=== PATIENT | female | born 1955 | race Caucasian/White ===

== ENCOUNTER 2020-02-04 13:06 | Inpatient (IN) | payer MEDICARE, MEDICAID, SELFPAY ==
[2020-02-04 13:07] VITALS: BP 140/117; PULSE 89; RESP 18; TEMP 36.6; O2SAT 95; BMI 29.9
--- NOTE | 2020-02-04 13:18 | ECG_ITS ---
[facility] Test Date: 2020-02-04 Pat Name: Cassie Shi Department: Room: Gender: Female Security Intern: : 1955 Requested By: Deena Alston Order Number: [id number] Darryl MD: Polly Cho M.D. Measurements Intervals Pinole Rate: 84 P: 23 VT: 175 QRS: -12 QRSD: 98 T: 61 QT: 403 QTc: 478 Interpretive Statements SINUS RHYTHM NONSPECIFIC T-WAVE ABNORMALITY No previous ECG available for comparison Electronically Signed On 02-05-2020 17:20:50 CDT by Polly Cho M.D. [id number]
--- NOTE | 2020-02-04 13:23 | W.ED.PSYCH ---
HPI - Psych General: Chief Complaint: Psychiatric Symptoms Stated Complaint: POSSIBLE REACTION TO SEROQUEL/ AGITATED Time Seen by Provider: 02/04/20 13:07 History of Present Illness: HPI Narrative: This patient is a 64-year-old female presenting with altered mental status. She came in by EMS and is accompanied by her daughter. The daughter tells me that the patient did not sleep well last night and apparently that is not unusual for her. She said was fine this morning and then laid down to take a nap from about 930 till about 1130. She got up from the nap and again seem to be normal according to the daughter but then suddenly started acting quite bizarrely. She stripped off all her close and would not put them back on. She said she was ready to go to [facility] . The patient does have a history of bipolar disorder and has been admitted to the MPU here in the past. She has had reactions in the past similar to this which were thought to be related to medications. Currently she is taking chlorthalidone, diltiazem, potassium, quetiapine, tizanidine. Apparently she does not normally take the tizanidine but took 1 today and the daughter wonders if there might be a medication interaction that is causing her behavior. EMS gave her dose of Haldol during transport and reported that the patient is much calmer and more cooperative now. The patient herself just complains of being thirsty and having to go to the bathroom. She denies any other complaints. She said she just generally does not feel well. MD complaint: altered mental status Onset (ago): hour(s) (1.5) Duration: constant History of same: Yes Relieving factors: none Exacerbating factors: none Associated psychiatric symptoms: racing thoughts Review of Systems General: Reports: 10 or more systems reviewed and unremarkable except in HPI and below Const: Denies: fever(s) or chills Card: Denies: chest pain or swelling of feet/ankles Resp: Denies: dyspnea, productive cough or non-productive cough GI: Denies: abdominal pain, nausea or vomiting : Denies: flank pain or difficulty voiding Musc: Denies: neck pain or back pain Skin/Breast: Denies: rash Neuro: Denies: headache(s), numbness in extremities or weakness in extremities Jim/Lymph: Denies: easy bruising or easy bleeding Physical Exam Const: COMMON NORMALS: no acute distress, no limitations and alert GENERAL APPEARANCE: cooperative HENMT: HEAD & SCALP: normal to inspection FACE & SINUS: normal facial exam MOUTH: other (Mucosa is dry) Eye: GENERAL EYE: appearance normal, both eyes and all related structures Neck/C-Spine: COMMON NORMALS: supple, no meningeal signs and no JVD Chest: COMMONS NORMALS: normal inspection of the chest Resp: COMMON NORMALS: normal respiratory effort, No use of accessory muscles and clear to auscultation bilaterally AUSCULTATION: clear to auscultation bilaterally Cardio: COMMON NORMALS: no JVD, regular rate, regular rhythm and No murmurs present (Cardio) RATE: regular rate RHYTHM: regular rhythm GI: COMMON NORMALS: Normal to inspection, nondistended, normoactive bowel sounds present, Soft to palpation and non-tender INSPECTION: Yes normal to inspection AUSCULTATION: Yes normoactive bowel sounds PALPATION: Yes Soft to palpation Back/Pelvis: COMMON NORMALS: thoracic and lumbar spine normal to inspection Extremity: COMMON NORMALS: normal to inspection Neuro: COMMON NORMALS: moves all extremities, no focal motor deficits and no sensory deficits noted SENSORIUM/ORIENTATION: Yes alert MENINGEAL SIGNS: Yes no meningeal signs DEEP TENDON REFLEXES: Rt Biceps (C5, C6): 2+, Left biceps reflex intensity grade: 2+, Right patellar reflex intensity grade: 2+ and Left patellar reflex intensity grade: 2+ Psych: COMMON NORMALS: denies suicidal ideation APPEARANCE: Yes grossly normal ACTIVITY/MOTOR BEHAVIOR: Yes psychomotor agitation SPEECH: Yes Pressured speech present Skin: COMMON NORMALS: no rashes or lesions noted and turgor normal GENERAL SKIN EXAM: no rashes or lesions noted and turgor normal MDM - Psych Lab Data: Labs: Lab Results 02/04/20 02/04/20 02/04/20 Range/Units 13:22 13:22 13:34 WBC 5.5 (4.0-10.0) 10^3/ uL RBC 4.75 (4.1-5.3) 10^6/u L Hgb 13.9 (11.5-15.3) g/dL Hct 42.1 (37.0-47.0) % MCV 88.6 (81-99) fL MCH 29.3 (28.0-34.0) pg MCHC 33.0 (30.0-36.0) g/dL RDW 12.7 (12.1-15.1) % Plt Count 216 (130-400) 10^3/c mm MPV 8.5 (7.4-10.4) fL Neut % (Auto) 58.6 % Lymph % (Auto) 27.8 % Woodruff % (Auto) 10.0 % Eos % (Auto) 2.5 % Baso % (Auto) 0.7 % Neut # (Auto) 3.23 (1.8-7.7) 10^3/u L Lymph # (Auto) 1.5 (0.8-4.8) 10^3/u L Woodruff # (Auto) 0.6 (0.2-0.9) 10^3/u L Eos # (Auto) 0.1 (0.0-0.8) 10^3/u L Baso # (Auto) 0.0 (0.0-0.1) 10^3/u L Nucleated RBC % (a uto) 0 % Nucleated RBCs # 0.0 /100WBC Sodium (136-145) mmol/L Potassium (3.5-5.1) mmol/L Chloride (98-107) mmol/L Carbon Dioxide (22-29) mmol/L Anion Gap (5-19) BUN (8-23) mg/dL Creatinine (0.5-0.9) mg/dL GFR Calculation (90-130) mL/min Glucose (65-115) mg/dL Calculated Osmolal ity (285-295) mOsm/k g Calcium (8.5-10.5) mg/dL Total Bilirubin (0.15-1.2) mg/dL AST (0-32) U/L ALT (0-33) U/L Alkaline Phosphata se (35-105) IU/L Total Protein (6.6-8.7) g/dL Albumin (3.5-5.2) g/dL Globulin (1.3-4.6) g/dL Urine Color Yellow (Yellow) Urine Appearance Clear (CLEAR) Urine pH 7 (5-7) Ur Specific Gravit y 1.010 (1.005-1.030) Urine Protein Neg (Negative) Urine Glucose (UA) Norm (Normal) Urine Ketones 1+ H (Negative) Urine Blood Neg (Negative) Urine Nitrate Negative (Negative) Urine Bilirubin Neg (NEGATIVE) Urine Urobilinogen Norm (Negative) mg/dL Ur Leukocyte Aminta ase 1+ H (Negative) Urine RBC None (0-2) /hpf Urine WBC 5-10 H (0-5) /hpf Ur Squamous Epith Cells 0-4 H (0-5) Amorphous Sediment Not Reportable Urine Bacteria Trace (NONE) Salicylates (3-10) mg/dL Urine Opiates Scre en Negative (Negative) ng/mL Acetaminophen (10-30) ug/mL Ur Barbiturates Sc reen Positive H (Negative) ng/mL Ur Phencyclidine S crn Negative (Negative) ng/mL Ur Amphetamines Sc reen Negative (Negative) ng/mL U Benzodiazepines Scrn Negative (Negative) ng/mL Urine Cocaine Scre en Negative (Negative) ng/mL U Marijuana (THC) Screen Negative (Negative) ng/mL Ethyl Alcohol (0-10) mg/dL 02/04/20 Range/Units 13:34 WBC (4.0-10.0) 10^3/ uL RBC (4.1-5.3) 10^6/u L Hgb (11.5-15.3) g/dL Hct (37.0-47.0) % MCV (81-99) fL MCH (28.0-34.0) pg MCHC (30.0-36.0) g/dL RDW (12.1-15.1) % Plt Count (130-400) 10^3/c mm MPV (7.4-10.4) fL Neut % (Auto) % Lymph % (Auto) % Woodruff % (Auto) % Eos % (Auto) % Baso % (Auto) % Neut # (Auto) (1.8-7.7) 10^3/u L Lymph # (Auto) (0.8-4.8) 10^3/u L Woodruff # (Auto) (0.2-0.9) 10^3/u L Eos # (Auto) (0.0-0.8) 10^3/u L Baso # (Auto) (0.0-0.1) 10^3/u L Nucleated RBC % (a uto) % Nucleated RBCs # /100WBC Sodium 139 (136-145) mmol/L Potassium 3.2 L (3.5-5.1) mmol/L Chloride 101 (98-107) mmol/L Carbon Dioxide 26 (22-29) mmol/L Anion Gap 15.2 (5-19) BUN 17 (8-23) mg/dL Creatinine 0.8 (0.5-0.9) mg/dL GFR Calculation 72.7 L (90-130) mL/min Glucose 115 (65-115) mg/dL Calculated Osmolal ity 285 (285-295) mOsm/k g Calcium 9.2 (8.5-10.5) mg/dL Total Bilirubin 0.4 (0.15-1.2) mg/dL AST 40 H (0-32) U/L ALT 26 (0-33) U/L Alkaline Phosphata se 66 (35-105) IU/L Total Protein 6.6 (6.6-8.7) g/dL Albumin 4.3 (3.5-5.2) g/dL Globulin 2.3 (1.3-4.6) g/dL Urine Color (Yellow) Urine Appearance (CLEAR) Urine pH (5-7) Ur Specific Gravit y (1.005-1.030) Urine Protein (Negative) Urine Glucose (UA) (Normal) Urine Ketones (Negative) Urine Blood (Negative) Urine Nitrate (Negative) Urine Bilirubin (NEGATIVE) Urine Urobilinogen (Negative) mg/dL Ur Leukocyte Aminta ase (Negative) Urine RBC (0-2) /hpf Urine WBC (0-5) /hpf Ur Squamous Epith Cells (0-5) Amorphous Sediment Urine Bacteria (NONE) Salicylates < 0.3 L (3-10) mg/dL Urine Opiates Scre en (Negative) ng/mL Acetaminophen < 5.0 L (10-30) ug/mL Ur Barbiturates Sc reen (Negative) ng/mL Ur Phencyclidine S crn (Negative) ng/mL Ur Amphetamines Sc reen (Negative) ng/mL U Benzodiazepines Scrn (Negative) ng/mL Urine Cocaine Scre en (Negative) ng/mL U Marijuana (THC) Screen (Negative) ng/mL Ethyl Alcohol < 10 (0-10) mg/dL Discharge Plan Discharge Admit Provider: Brent Luz Discharge Date/Time: 02/04/20 16:02 Coding Level of Care Code ED Household Appliance Repairer for Chg Fwd Exam Comprehensive
[2020-02-04 13:38] LABS: Basophils % 0.7 %; Eosinophils # 0.1 10^3/uL (0.0-0.8); Eosinophils % 2.5 %; Hematocrit 42.1 % (37.0-47.0); Hemoglobin 13.9 g/dL (11.5-15.3); Lymphocytes # 1.5 10^3/uL (0.8-4.8); Lymphocytes % 27.8 %; Mean Corpuscular Hemoglobin 29.3 pg (28.0-34.0); Mean Corpuscular Volume 88.6 fL (81-99); Mean Platelet Volume 8.5 fL (7.4-10.4); Monocytes # 0.6 10^3/uL (0.2-0.9); Neutrophils # 3.23 10^3/uL (1.8-7.7); Neutrophils % 58.6 %; Nucleated Red Blood Cells % 0 %; Platelet Count 216 10^3/cmm (130-400); Red Blood Count 4.75 10^6/uL (4.1-5.3); Red Cell Distribution Width 12.7 % (12.1-15.1); White Blood Count 5.5 10^3/uL (4.0-10.0)
[2020-02-04 13:53] LABS: Add Urine Microscopic? YES; Bilirubin Urine Neg (NEGATIVE); Blood Urine Neg (Negative); Glucose Urine UA Norm (Normal); Ketones Urine 1+ (Negative); Leukocyte Esterase Urine 1+ (Negative); Nitrate Urine Negative (Negative); Protein Urine Neg (Negative); Urine Appearance Clear (CLEAR); Urine Color Yellow (Yellow); Urobilinogen Urine Norm (Negative); pH Urine 7 (5-7)
[2020-02-04 13:57] LABS: Amphetamines Screen Urine Negative (Negative); Barbiturates Screen Urine Positive (Negative); Benzodiazepines Screen Urine Negative (Negative); Cocaine Screen Urine Negative (Negative); Opiate Screen Urine Negative (Negative); PCP Screen Urine Negative (Negative); THC Screen Urine Negative (Negative)
[2020-02-04 14:00] LABS: Alanine Aminotransferase 26 U/L (0-33); Albumin Level 4.3 g/dL (3.5-5.2); Alkaline Phosphatase 66 IU/L (35-105); Anion Gap 15.2 (5-19); Aspartate Amino Transferase 40 U/L (0-32); Blood Urea Nitrogen 17 mg/dL (8-23); Calcium 9.2 mg/dL (8.5-10.5); Carbon Dioxide 26 mmol/L (22-29); Chloride 101 mmol/L (98-107); Globulin 2.3 g/dL (1.3-4.6); Glomerular Filtration Rate 72.7 mL/min (90-130); Glucose 115 mg/dL (65-115); Osmolality Calculated 285 mOsm/kg (285-295); Potassium 3.2 mmol/L (3.5-5.1); Sodium 139 mmol/L (136-145); Total Bilirubin 0.4 mg/dL (0.15-1.2); Total Protein 6.6 g/dL (6.6-8.7)
[2020-02-04 14:01] LABS: Add Urine Culture? No; Bacteria Urine TRACE; Squamous Epithelial Cell Urine 0-4 (0-5)
[2020-02-04 14:08] LABS: Acetaminophen < 5.0 ug/mL (10-30); Alcohol Level < 10 mg/dL (0-10); Salicylate < 0.3 mg/dL (3-10)
[2020-02-04 15:20] VITALS: BP 131/76; PULSE 77; RESP 18; O2SAT 97
--- NOTE | 2020-02-04 15:45 | PC.NURSE ---
patient sitting quietly in room with daughter eating a meal no other needs voiced
[2020-02-04 16:00] VITALS: BP 133/75; PULSE 79; RESP 20; TEMP 36.8; O2SAT 96
[2020-02-04 16:57] VITALS: BP 133/80; PULSE 101; RESP 18; TEMP 36.4; O2SAT 95
[2020-02-04] MEDS: trazodone 50 mg Tablet PO (20:15)
--- NOTE | 2020-02-04 20:32 | PC.NURSE ---
pt requested sleeping med, prn trazodone given.
[2020-02-04 20:53] VITALS: BP 123/69; PULSE 74; RESP 19; TEMP 36.9; O2SAT 96
[2020-02-05] MEDS: hyDROXYzine 25 mg Capsule 50 MG PO (03:33)
[2020-02-05 06:00] VITALS: BP 133/86; PULSE 73; RESP 20; TEMP 36.8; O2SAT 98
[2020-02-05] MEDS: hydrocortisone 1% cream 28 gm 1 APPLIC TOPICAL (12:01)
[2020-02-05] MEDS: bisacodyl 5 mg Tablet PO (12:01)
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
[2020-02-05 13:24] VITALS: BP 133/86; PULSE 78; RESP 18; TEMP 36.7; O2SAT 96
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
[2020-02-05 16:19] VITALS: BP 133/86; PULSE 78; RESP 18; TEMP 36.7; O2SAT 96
== END 2020-02-05 16:35 | disposition home or self-care (01) | DRG 897 ==
LOC: ER 13:17 → NP 15:55
PROVIDERS: Admitting Provider Psychiatry & Neurology Psychiatry; Emergency Provider Emergency Medicine; Family Provider Internal Medicine; Visit Provider Psychiatry & Neurology Psychiatry
DX: F19.94 Other psychoactive substance use, unspecified with psychoactive substance-induced mood disorder (principal); F43.10 Post-traumatic stress disorder, unspecified; F43.25 Adjustment disorder with mixed disturbance of emotions and conduct
CPT/HCPCS: 12345; 36415; 80053; 80306; 80307; 81001; 85025; 93005; 99284

== ENCOUNTER → 2020-10-07 09:17 | Outpatient (BNVA) | payer MEDICARE, MEDICAID, SELFPAY | PROVIDERS: Family Provider Internal Medicine; Visit Provider Specialist | DX: G57.31 Lesion of lateral popliteal nerve, right lower limb (principal) | CPT/HCPCS: 95908 ==

== ENCOUNTER 2022-11-29 08:06 | Emergency (ER) | payer MEDICARE, MEDICAID, SELFPAY ==
[2022-11-29] VITALS (40 sets, daily range): BP systolic 129–189; BP diastolic 83–105; PULSE 77–84; RESP 10–29; TEMP 37.2; O2SAT 81–97; BMI 34.9
--- NOTE | 2022-11-29 08:40 | CTR_ITS ---
PROCEDURE INFORMATION: Exam: CT Head Without Contrast Exam date and time: 11/29/2022 10:09 AM Age: 67 years old Clinical indication: Injury or trauma; Blunt trauma (contusions or hematomas); Injury details: Fall x today hitting head and chest. PT C/O headache and neck pain and pressure. ; Additional info: Fall, closed head injury TECHNIQUE: Imaging protocol: Computed tomography of the head without contrast. Radiation optimization: All CT scans at this facility use at least one of these dose optimization techniques: automated exposure control; mA and/or kV adjustment per patient size (includes targeted exams where dose is matched to clinical indication); or iterative reconstruction. REPORTING DATA: Count of CT and Cardiac NM exams in prior 12 months: This patient has received 0 known CTs and 0 known cardiac nuclear medicine studies in the 12 months prior to the current study. COMPARISON: No relevant prior studies available. RADIATION DOSE METRICS: Total DLP (mGy-cm): 1200.92 FINDINGS: Brain: No intracranial hemorrhage. Mild central and cortical atrophy and small vessel ischemic disease. Cerebral ventricles: No ventriculomegaly. Paranasal sinuses: There is a small air-fluid level within the left sphenoid sinus. Mastoid air cells: Visualized mastoid air cells are well aerated. Bones/joints: Unremarkable. No acute fracture. Soft tissues: Large frontal scalp hematoma. More inferiorly this is mostly frontal but toward the vertex posteriorly. CT/CT head wo con* [id number] IMPRESSION: Large scalp hematoma. No intracranial injury.
--- NOTE | 2022-11-29 08:40 | CTR_ITS ---
PROCEDURE INFORMATION: Exam: CT Cervical Spine Without Contrast Exam date and time: 11/29/2022 10:09 AM Age: 67 years old Clinical indication: Injury or trauma; Blunt trauma; Injury details: Fall x today hitting head and chest. PT C/O headache and neck pain and pressure. TECHNIQUE: Imaging protocol: Computed tomography of the cervical spine without contrast. Radiation optimization: All CT scans at this facility use at least one of these dose optimization techniques: automated exposure control; mA and/or kV adjustment per patient size (includes targeted exams where dose is matched to clinical indication); or iterative reconstruction. REPORTING DATA: Count of CT and Cardiac NM exams in prior 12 months: This patient has received 0 known CTs and 0 known cardiac nuclear medicine studies in the 12 months prior to the current study. COMPARISON: CR XR chest 1V portable [id number] 11/29/2022 8:51 AM RADIATION DOSE METRICS: Total DLP (mGy-cm): 266.4 FINDINGS: Bones/joints: There is a fracture of C2. The fracture is in oblique fashion from the superior 3rd of the dens through the posterior body. This has a type 1 appearance which appears chiefly through the body of the dens and not through neck. 2 mm listhesis C3 anterior to C4. 2 mm listhesis C4 anterior to C5. Torticollis to the left. There is a bone cysts seen involving the dens measuring 8.3 x 6 mm. C2 is slightly elevated with respect to the skull base however, I suspect this is within normal limits in the invagination and likely due to event diffuse arthritic changes. C2/3: No acute abnormality. C3/4: Listhesis. No disc protrusion or extrusion. No spinal stenosis. Mild foraminal narrowing due to spurring on left. C4/5: Listhesis. No disc extrusion. No spinal stenosis. No foraminal narrowing. C5/6: Mild posterior spurring. No disc protrusion or extrusion. Mild foraminal narrowing due to spurring on the left. No stenosis. C6/7: Mild degenerative disc disease with posterior spurring. No disc protrusion or extrusion. Unremarkable foramina. C7/T1: No acute abnormality. Lungs: Lung apices are normal. Soft tissues: Unremarkable. CT/CT cervical spin wo con* [id number] IMPRESSION: Dens fracture. This appears to be a type 1 oblique fracture. Arthritis and listhesis. THIS REPORT CONTAINS FINDINGS THAT MAY BE CRITICAL TO PATIENT CARE. The findings were verbally communicated by me to URBAN CARNEY at 10:58 AM SENIOR PRODUCT CONSULTANT on 11/29/2022. The findings were acknowledged and understood.
--- NOTE | 2022-11-29 08:40 | XR_ITS ---
WS: [id number] EXAMINATION: XR chest 1V portable [id number] REASON FOR EXAM: trauma COMPARISON: None available. ORDER DATE: 11/29/2022 8:47 AM TECHNIQUE: A single, portable frontal chest x-ray was obtained. X-RAY FINDINGS: The lungs are clear. Pleural spaces are clear. No pleural effusions or pneumothorax. Cardiomediastinal silhouette is unremarkable except for aortic arch ectasia. No evidence for pulmonar y edema. Soft tissue and osseous structures are unremarkable. No tubes or lines are present. XR/XR chest 1V portable [id number] IMPRESSION: Unremarkable frontal portable chest x-ray.
[2022-11-29 08:57] LABS: Basophils # 0.1 10^3/uL (0.0-0.1); Basophils % 0.4 %; Eosinophils # 0.3 10^3/uL (0.0-0.8); Eosinophils % 1.9 %; Hemoglobin 15.2 g/dL (11.5-15.3); Lymphocytes # 1.4 10^3/uL (0.8-4.8); Mean Corpuscular HGB Conc 31.7 g/dL (30.0-36.0); Mean Corpuscular Hemoglobin 27.9 pg (28.0-34.0); Mean Corpuscular Volume 88.2 fl (81-99); Mean Platelet Volume 8.9 fL (7.4-10.4); Monocytes # 0.6 10^3/uL (0.2-0.9); Monocytes % 4.1 %; Neutrophils # 11.08 10^3/uL (1.8-7.7); Neutrophils % 79.2 %; Nucleated Red Blood Cells % 0 %; Platelet Count 268 10^3/cmm (130-400); Red Blood Count 5.44 10^6/uL (4.1-5.3); Red Cell Distribution Width 13.2 % (12.1-15.1)
[2022-11-29] MEDS: ketorolac 30 mg/mL INJ 15 MG IVP (08:59)
[2022-11-29] MEDS: HYDROcodone-acetaminophen 5-325 mg Tablet 1 TAB PO (08:59)
[2022-11-29 09:14] LABS: Anion Gap 14.9 (5-19); Blood Urea Nitrogen 12 mg/dL (8-23); Calcium 8.7 mg/dL (8.5-10.5); Carbon Dioxide 28 mmol/L (22-29); Chloride 105 mmol/L (98-107); Glucose 123 mg/dL (65-115); Osmolality Calculated 299 mOsm/kg (285-295); Potassium 3.9 mmol/L (3.5-5.1); Sodium 144 mmol/L (136-145)
[2022-11-29] MEDS: ondansetron 2 mg/ML SDV 2 mL 4 MG IVP (09:21)
[2022-11-29] MEDS: morphine 4 mg/mL SDV 1 mL IVP (09:22)
--- NOTE | 2022-11-29 10:15 | W.ED.FALL ---
HPI - Fall General: Chief Complaint: Fall Stated Complaint: Fell, Chest and head pain Time Seen by Provider: 11/29/22 08:11 Source: patient and family Mode of arrival: ambulatory History of Present Illness: 67-year-old female presents emergency room she is [place] only speaking she understands a minimal amount [place] Islander. One of her nursing staff is also fluent in [place] as well as her daughter we offered her a rigging engineer she declined she would rather have her family member in the nursing she knows translated. She states she got dizzy and lightheaded fell down about 6-8 stairs she is complaining of head and neck pain as well as some chest discomfort she hit her chest that she fell. She denies any low back pain there is no loss of consciousness no vomiting she is not on any anticoagulants. MD complaint: fall Onset (ago): minute(s) Fall from: standing Fall witnessed: yes, by family Place fall occurred: home Loss of consciousness: None Prolonged down time: no Symptoms prior to fall: lightheadedness and dizziness Location of injury: head, neck and chest Associated symptoms-after fall: Reports chest pain (From hitting a shelf when she fell), lightheadedness and neck pain; Denies abdominal pain, confusion, difficulty walking, headache(s), hematuria, numbness, short of breath, vertigo or weakness Review of Systems Const: Denies: fever(s), chills, body aches, change in appetite, fatigue or malaise ENMT: Denies: throat pain, ear or mastoid pain, nasal discharge or nasal congestion Card: Reports: chest pain (From hitting a shelf when she fell) and lightheadedness Resp: Denies: dyspnea, productive cough or non-productive cough GI: Denies: abdominal pain : Denies: hematuria Musc: Reports: neck pain Skin/Breast: Denies: rash or pruritus Neuro: Denies: headache(s), difficulty walking, vertigo or confusion PFS ED PFSH: Medical History (Updated 11/29/22 @ 12:42 by Chucho Powell DO) Hypertension Neuropathy of right peroneal nerve PTSD (post-traumatic stress disorder) Physical Exam Const: GENERAL APPEARANCE: cooperative and comfortable ORIENTATION/CONSCIOUSNESS: Yes awake, Yes oriented to person, Yes oriented to place and Yes oriented to time HENMT: COMMON NORMALS: normocephalic, atraumatic and hearing grossly normal bilaterally HEAD & SCALP: normocephalic and atraumatic Resp: COMMON NORMALS: normal respiratory effort, No retractions, No use of accessory muscles and clear to auscultation bilaterally AUSCULTATION: clear to auscultation bilaterally Cardio: COMMON NORMALS: regular rate, regular rhythm and No murmurs present (Cardio) RATE: regular rate RHYTHM: regular rhythm GI: COMMON NORMALS: Soft to palpation and No hepatosplenomegaly present AUSCULTATION: Yes normoactive bowel sounds PALPATION: Yes Soft to palpation, No Tenderness to palpation present (GI), No Guarding due to palpation present (GI) and Yes No hepatosplenomegaly present Extremity: COMMON NORMALS: normal to inspection, capillary refill normal, no clubbing, cyanosis or edema, no calf tenderness and no pedal edema Neuro: SENSORIUM/ORIENTATION: Yes oriented to person, Yes oriented to place and Yes oriented to time Skin: COMMON NORMALS: no rashes or lesions noted GENERAL SKIN EXAM: no rashes or lesions noted Course Vital Signs: Vital signs: Vital Signs Temperature 98.9 F 11/29/22 08:12 Pulse Rate 78 11/29/22 12:05 Respiratory Rate 27 H 11/29/22 12:05 Blood Pressure 153/89 11/29/22 12:05 Pulse Oximetry 91 11/29/22 12:05 Oxygen Delivery Me thod Room Air 11/29/22 10:25 MDM - Fall Medical Decision Making Closed odontoid fracture with some displacement. Patient is convinced that this has been present previously her there is no cortication along what appeared to be the new fracture edges and very concerned that this is new. It is somewhat displaced about 2 used to 0.3 mm. Discussed with her the importance of having this further evaluated recommend referral to neurosurgery in [place] due to the trauma patient refuses. She also refuses a c-collar to stabilize. She does not speak [place] initially she did not want a rigging engineer and we used her daughter and one of our staff members who speaks fluent [place]. We then did use a rigging engineer. I had extensive conversations with the patient and her daughter return to the room had another extensive conversation with the patient and the daughter and our staff member who speaks [place]. Patient repeatedly refuses to consider transfer for further evaluation by neurosurgery today Ayah she declines even initial referral to our orthopedic spine surgeon here as an outpatient. She refuses to tolerate c-collar. I told her through her daughter as well as our staff member and then finally in the third separate conversation with the rigging engineer service that this could be a potential critical injury and that it is not treated properly and has a potential to cause serious injury that would be permanent or even . Patient expresses in all 3 conversation that she understands this and refuses referral to trauma center in [place]. As a less desirable but secondary approach I asked her to his wear the c-collar and see Dr. Burger she declined this as well. She may see Dr. Burger as an outpatient but she is essentially states that will depend on how she is feeling. Advised the patient at any time if she wishes she is welcome to return and we would be happy to reevaluate and refer her for definitive evaluation and treatment. Patient specifically stated that she did understand our concern of worsening injury and even and still wishes to go home. Medical Records I reviewed the patient's medical records. Lab Data I reviewed the patient's lab results. 11/29/22 08:45 11/29/22 08:45 Radiology Impressions Cervical Spine CT 11/29/22 08:40 IMPRESSION: Dens fracture. This appears to be a type 1 oblique fracture. Arthritis and listhesis. THIS REPORT CONTAINS FINDINGS THAT MAY BE CRITICAL TO PATIENT CARE. The findings were verbally communicated by me to CHUCHO POWELL at 10:58 AM [employer] BUSINESS OBJECTS CONSULTANT on 11/29/2022. The findings were acknowledged and understood. Chest X-Ray 11/29/22 08:40 IMPRESSION: Unremarkable frontal portable chest x-ray. Head CT 11/29/22 08:40 IMPRESSION: Large scalp hematoma. No intracranial injury. ADDENDUM: 11/29/22 1057 Addendum: The spinal fracture will be discussed in the CT of the cervical spine. Laboratory Results WBC 14.0 10^3/uL (4.0-10.0) H 11/29/22 08:45 RBC 5.44 10^6/uL (4.1-5.3) H 11/29/22 08:45 Hgb 15.2 g/dL (11.5-15.3) 11/29/22 08:45 Hct 48.0 % (37.0-47.0) H 11/29/22 08:45 MCV 88.2 fl (81-99) 11/29/22 08:45 MCH 27.9 pg (28.0-34.0) L 11/29/22 08:45 MCHC 31.7 g/dL (30.0-36.0) 11/29/22 08:45 RDW 13.2 % (12.1-15.1) 11/29/22 08:45 Plt Count 268 10^3/cmm (130-400) 11/29/22 08:45 MPV 8.9 fL (7.4-10.4) 11/29/22 08:45 Neut % (Auto) 79.2 % 11/29/22 08:45 Lymph % (Auto) 10.0 % 11/29/22 08:45 [place] % (Auto) 4.1 % 11/29/22 08:45 Eos % (Auto) 1.9 % 11/29/22 08:45 Baso % (Auto) 0.4 % 11/29/22 08:45 Neut # (Auto) 11.08 10^3/uL (1.8-7.7) H 11/29/22 08:45 Lymph # (Auto) 1.4 10^3/uL (0.8-4.8) 11/29/22 08:45 [place] # (Auto) 0.6 10^3/uL (0.2-0.9) 11/29/22 08:45 Eos # (Auto) 0.3 10^3/uL (0.0-0.8) 11/29/22 08:45 Baso # (Auto) 0.1 10^3/uL (0.0-0.1) 11/29/22 08:45 Nucleated RBC % (auto) 0 % 11/29/22 08:45 Nucleated RBCs # 0.0 /100WBC 11/29/22 08:45 Sodium 144 mmol/L (136-145) 11/29/22 08:45 Potassium 3.9 mmol/L (3.5-5.1) 11/29/22 08:45 Chloride 105 mmol/L (98-107) 11/29/22 08:45 Carbon Dioxide 28 mmol/L (22-29) 11/29/22 08:45 Anion Gap 14.9 (5-19) 11/29/22 08:45 BUN 12 mg/dL (8-23) 11/29/22 08:45 Creatinine 0.7 mg/dL (0.5-0.9) 11/29/22 08:45 GFR Calculation 84.0 mL/min (90-130) L 11/29/22 08:45 Glucose 123 mg/dL (65-115) H 11/29/22 08:45 Calculated Osmolality 299 mOsm/kg (285-295) H 11/29/22 08:45 Calcium 8.7 mg/dL (8.5-10.5) 11/29/22 08:45 Discharge Plan Discharge Patient Disposition: Home Clinical Impression: Closed type I fracture of odontoid process Condition: Stable Prescriptions: New hydrocodone-acetaminophen 5-325 mg tablet 1 tab PO Q6H PRN (Reason: pain) Qty: 20 0RF No Action potassium chloride 10 mEq tablet extended release 10 meq PO TID chlorthalidone 25 mg tablet 25 mg PO DAILY diltiazem HCl [Cartia XT] 120 mg capsule,extended release 24hr 120 mg PO DAILY quetiapine [Seroquel] 50 mg Tablet 50 mg PO BID Rx Instructions: pts family states this was an old rx-rx bottle was dated 10/2015 lorazepam 0.5 mg tablet 0.5 mg PO BEDTIME neomycin-polymyxin B-dexameth 3.5mg/mL-10,000 unit/mL-0.1 % drops,suspension 1 drp ophthalmic (eye) BID Discharge Orders: Discharge ED (Routine); Ordered 11/29/22 Ordered By: Chucho Powell Referrals: Bonnie Méndez NP [Primary Care Provider] - Discharge Diet: Usual diet Discharge Activity: Limit activity as instructed Patient Instructions: Opioid Safety, Pain Management Activity Restrictions/Additional Instructions: Imaging is on the neck today suggest a new fracture to the odontoid. We had recommended that you be transferred to be evaluated by neurosurgery. Since you have declined this you were discharged home with pain medications. If you change your mind anytime you are welcome to return to be further evaluated. If you develop pain in the arms or other symptoms please return to the emergency room to be reevaluated. Avoid any heavy lifting. Recommend rest avoid turning the neck. We also would recommend that you wear a c-collar which you had declined. If you change your mind recommend that you do where 1 you can return to the emergency room and you can be fitted for 1 if you wish. Case management make arrangements for you to follow-up with Dr. Burger later this week. Coding Level of Care Code ED Technical Support Representative for Jasson Henning
--- NOTE | 2022-11-29 12:10 | PC.NURSE ---
PT REFUSED C-COLLAR PLACEMENT AFTER MULTIPLE ATTEMPTS TO EXPLAIN THE REASONING FOR NEEDING IT AND RISKS OF NOT WEARING IT. PT STATES I FEEL BETTER WITHOUT IT ANYWAY. DR CARNEY NOTIFIED.
--- NOTE | 2022-11-29 13:28 | PC.NURSE ---
PT UP FOR DC. PT SATTING 88-90% ROOM AIR. MORPHINE HELD DUE TO RISK OF DECREASING O2 SATURATION. ED PHYSICIAN NOTIFIED.
--- NOTE | 2022-11-29 13:57 | PC.NURSE ---
PT PRIMARY LANGUAGE IS NICARAGUAN. DAUGHTER WHO IS ABLE TO SPEAK IN DANISH AND [place] IS ABLE TO TRANSLATE INFORMATION BACK TO PT. PER 'S RECOMMENDATION, PT REQUIRES A HIGHER LEVEL OF CARE THAT REQUIRES TRANSFER. PT EXPLAINED EXTENT OF THE SITUATION/ ISSUE AND RISKS MULTIPLE TIMES BY ME AND DR CARNEY AND A PROFESSIONAL N[place]AN BED MAKER VIA PHONE. PT REFUSED TO BE TRANSFERRED OR NEEDING FURTHER CARE STATING (IN [place]) IF IT'S MY TIME TO THEN SO BE IT. AWARE OF REFUSAL.
--- NOTE | 2022-11-29 15:13 | PC.SOCIAL ---
Addendum entered by Krystal Moreno 12/17/22 12:33: manager of compliance received the following message from the ortho clinic regarding follow up appointment: recieved a call from patients bus steward. patient is refusing to come in at this time. Jade Sheffield LPN Transport Manager [facility]oped[facility], Spine, Podiatry and Pain Management On 11/29/22 @ 16:57 Ida Bacon Wrote To Georgie Johnson attempt made to contact patient - left vm on number in chart. also tried next of kin and it states number is not in service. The auth to discuss has a number for another family member and i tried that also. That person is going to relay our phone number to patient to call us back. Per dr jones nurse please try to get in tomorrow or at the latest Original Note: Ortho Referral Patient's referral sent to ortho clinic; clinic to contact patient with appt date/time.
== END 2022-11-29 14:32 | disposition home or self-care (01) ==
PROVIDERS: Emergency Provider Family Medicine; PCP Nurse Practitioner Family
DX: S12.120A Other displaced dens fracture, initial encounter for closed fracture (principal); S00.03XA Contusion of scalp, initial encounter; I10 Essential (primary) hypertension; W10.8XXA Fall (on) (from) other stairs and steps, initial encounter
CPT/HCPCS: 70450; 71045; 72125; 80048; 85025; 96374; 96375; 99285; J1885; J2270; J2405

== ENCOUNTER 2023-12-30 14:56 | Emergency (ER) | payer MEDICARE, MEDICAID, SELFPAY ==
[2023-12-30 15:07] VITALS: BP 125/78; PULSE 79; RESP 16; TEMP 37.8; O2SAT 90
--- NOTE | 2023-12-30 15:50 | XRR_ITS ---
PROCEDURE INFORMATION: Exam: XR Chest Exam date and time: 12/30/2023 4:37 PM Age: 68 years old Clinical indication: Cough and dyspnea; TECHNIQUE: Imaging protocol: Radiologic exam of the chest. Views: 1 view. COMPARISON: CR XR chest 1V portable [id number] 11/29/2022 8:51 AM FINDINGS: Lungs: Areas of minimal scarring and or atelectasis at the left lung base. Pleural spaces: Unremarkable. No pleural effusion. No pneumothorax. Heart/Mediastinum: Unremarkable. No cardiomegaly. Vasculature: Thoracic aorta is mildly tortuous. There is minimal calcified plaque in the aortic knob. Bones/joints: Unremarkable. XR/XR chest 1V portable [id number] IMPRESSION: No acute findings.Non acute findings as described above.
--- NOTE | 2023-12-30 15:52 | CTR_ITS ---
PROCEDURE INFORMATION: Exam: CT Head Without Contrast Exam date and time: 12/30/2023 4:49 PM Age: 68 years old Clinical indication: Malaise or fatigue; Additional info: AMS TECHNIQUE: Imaging protocol: Computed tomography of the head without contrast. Radiation optimization: All CT scans at this facility use at least one of these dose optimization techniques: automated exposure control; mA and/or kV adjustment per patient size (includes targeted exams where dose is matched to clinical indication); or iterative reconstruction. COMPARISON: CT head wo con* [id number] 11/29/2022 10:09 AM RADIATION DOSE METRICS: Total DLP (mGy-cm): 1107.18 FINDINGS: Brain: There is mild diffuse cerebral atrophy present, consistent with this patient's age. Periventricular and subcortical white matter low densities are present which at this age likely represent microvascular ischemic change. No evidence for large acute ischemic infarction. Please note acute ischemia can be occult by head CT. No evidence for acute intracranial hemorrhage. Cerebral ventricles: No ventriculomegaly. Paranasal sinuses: Visualized sinuses are unremarkable. No fluid levels. Mastoid air cells: Visualized mastoid air cells are well aerated. Bones: Unremarkable. No acute fracture. Soft tissues: Unremarkable. CT/CT head wo con* [id number] IMPRESSION: There are senescent changes of the brain as described above. No evidence for large acute ischemic infarction or acute intracranial injury.
[2023-12-30 16:09] LABS: Basophils % 0.1 %; Hematocrit 43.1 % (36-47); Lymphocytes # 0.7 10^3/uL (0.8-4.8); Lymphocytes % 5.5 %; Mean Corpuscular HGB Conc 33.4 g/dL (30-55); Mean Corpuscular Hemoglobin 28.9 pg (27-33); Mean Corpuscular Volume 86.4 fl (85-98); Mean Platelet Volume 9.1 fL (7.4-10.4); Monocytes # 0.7 10^3/uL (0.2-0.9); Monocytes % 6.1 %; Neutrophils # 10.65 10^3/uL (1.8-7.7); Nucleated Red Blood Cells % 0 %; Platelet Count 205 10^3/cmm (157-399); Red Blood Count 4.99 10^6/uL (3.85-5.65); Red Cell Distribution Width 12.6 % (12.1-15.1)
[2023-12-30 16:30] LABS: Alanine Aminotransferase 27 U/L (0-33); Alkaline Phosphatase 79 U/L (35-105); Anion Gap 19.2 (5-19); Aspartate Amino Transferase 32 U/L (0-32); Blood Urea Nitrogen 26 mg/dL (8-23); Calcium 8.4 mg/dL (8.5-10.5); Carbon Dioxide 25 mmol/L (22-29); Chloride 92 mmol/L (98-107); Creatinine Clr Calc Pharmacy 61.5784; Globulin 3.5 g/dL (1.3-4.6); Glomerular Filtration Rate 55.5 mL/min (90-130); Glucose 126 mg/dL (65-115); Osmolality Calculated 282 mOsm/kg (285-295); Potassium 3.2 mmol/L (3.5-5.1); Sodium 133 mmol/L (136-145); Total Bilirubin 0.5 mg/dL (0.15-1.2); Total Protein 7.5 g/dL (6.6-8.7)
--- NOTE | 2023-12-30 16:31 | ED_ITS ---
HPI - General Adult 2 General: Chief complaint: General Medical Stated complaint: awake for 2 days Time Seen by Provider: 12/30/23 15:46 Source: patient Mode of arrival: ambulatory History of Present Illness: 68-year-old female presents emergency ro om has not slept well. Family states she takes lorazepam half milligram at at bedtime and has been doing this for about 30 years to sleep. Now she has not been sleeping well. In addition to this she is on Seroquel 50 mg twice daily. She is complaining of a cough and a low-grade fever as well. Some mild dysuria that she also had some vomiting. Associated symptoms: Deny chest pain, dyspnea or rash Review of Systems 2 Const: Denies: fever(s) or chills Card: Denies: chest pain Resp: Denies: dyspnea GI: Denies: abdominal pain : Denies: dysuria, urinary frequency or urinary urgency Musc: Denies: neck pain or back pain Skin/Breast: Denies: rash PFSH ED 2 PFSH: Medical History Hypertension Neuropathy of right peroneal nerve PTSD (post-traumatic stress disorder) Physical Exam 2 Const: COMMON NORMALS: no acute distress GENERAL APPEARANCE: cooperative and comfortable ORIENTATION/CONSCIOUSNESS: Yes awake, Yes oriented to person, Yes oriented to place and Yes oriented to time HENMT: COMMON NORMALS: normocephalic, atraumatic and hearing grossly normal bilaterally HEAD & SCALP: normocephalic and atraumatic Resp: COMMON NORMALS: normal respiratory effort, No retractions, No use of accessory muscles and clear to auscultation bilaterally AUSCULTATION: clear to auscultation bilaterally Cardio: COMMON NORMALS: regular rate, regular rhythm and No murmurs present (Cardio) RATE: regular rate RHYTHM: regular rhythm GI: COMMON NORMALS: Soft to palpation and No hepatosplenomegaly present A USCULTATION: Yes normoactive bowel sounds PALPATION: Yes Soft to palpation, No Tenderness to palpation present (GI), No Guarding due to palpation present (GI) and Yes No hepatosplenomegaly present Extremity: COMMON NORMALS: normal to inspection, capillary refill normal, no clubbing, cyanosis or edema, no calf tenderness and no pedal edema Neuro: SENSORIUM/ORIENTATION: Yes oriented to person, Yes oriented to place and Yes oriented to time Skin: COMMON NORMALS: no rashes or lesions noted GENERAL SKIN EXAM: no rashes or lesions noted Course 2 Vital Signs: Vital signs: Vital Signs Temperature 100.1 F H 12/30/23 15:07 Pulse Rate 85 12/30/23 19:05 Respiratory Rate 18 12/30/23 19:05 Blood Pressure 159/81 12/30/23 18:10 Pulse Oximetry 92 12/30/23 19:05 Oxygen Delivery Me thod Room Air 12/30/23 18:10 MDM - General Adult Medical Decision Making Family is insisting on home very focused on the fact they just want a shot and want to go home. Discussed with him that she has some mild rhabdomyolysis and elevated white count and a fever. They are just wanting to go home. I am not comfortable simply giving a shot of an antipsychotic and discharging home especially with her current condition. Initially they refused labs and fluids eventually were able to get them to allow this. She is given Rocephin. They are simply wanting to be discharged now. Advised her would recommend not using Ativan regularly as it will require escalating doses over time and then become not effective. They have been on Seroquel in the past were initially represcribed Seroquel she states she did not like how that affected her so instead we changed it to Zyprexa. In addition to this we will put her on cefdinir for her cystitis. She should recheck with your primary care doctor within the next few days she needs repeat lab work including a CPK and creatinine. Daughter is wanting to take the patient home and is upset because will not give the shot. Reviewed the chart looks like they gave her Haldol and Benadryl last time given her current condition I would not feel comfortable nor would it be safe to do this and discharge her home. I expressed this to her their choice was to do the oral antibiotic and try the Zyprexa. Lab Data 12/30/23 16:00 12/30/23 16:00 Radiology Impressions Chest X-Ray 12/30/23 15:50 IMPRESSION: No acute findings.Non acute findings as described above. Head CT 12/30/23 15:52 IMPRESSION: There are senescent changes of the brain as described above. No evidence for large acute ischemic infarction or acute intracranial injury. Laboratory Results WBC 12.10 10^3/uL (3.29-11.43) H 12/30/23 16:00 RBC 4.99 10^6/uL (3.85-5.65) 12/30/23 16:00 Hgb 14.40 g/dL (11.27-16.99) 12/30/23 16:00 Hct 43.1 % (36-47) 12/30/23 16:00 MCV 86.4 fl (85-98) 12/30/23 16:00 MCH 28.9 pg (27-33) 12/30/23 16:00 MCHC 33.4 g/dL (30-55) 12/30/23 16:00 RDW 12.6 % (12.1-15.1) 12/30/23 16:00 Plt Count 205 10^3/cmm (157-399) 12/30/23 16:00 MPV 9.1 fL (7.4-10.4) 12/30/23 16:00 Neut % (Auto) 88.0 % 12/30/23 16:00 Lymph % (Auto) 5.5 % 12/30/23 16:00 [place] % (Auto) 6.1 % 12/30/23 16:00 Eos % (Auto) 0.0 % 12/30/23 16:00 Baso % (Auto) 0.1 % 12/30/23 16:00 Neut # (Auto) 10.65 10^3/uL (1.8-7.7) H 12/30/23 16:00 Lymph # (Auto) 0.7 10^3/uL (0.8-4.8) L 12/30/23 16:00 [place] # (Auto) 0.7 10^3/uL (0.2-0.9) 12/30/23 16:00 Eos # (Auto) 0.0 10^3/uL (0.0-0.8) 12/30/23 16:00 Baso # (Auto) 0.0 10^3/uL (0.0-0.1) 12/30/23 16:00 Nucleated RBC % (auto) 0 % 12/30/23 16:00 Nucleated RBCs # 0.0 /100WBC 12/30/23 16:00 Sodium 133 mmol/L (136-145) L 12/30/23 16:00 Potassium 3.2 mmol/L (3.5-5.1) L 12/30/23 16:00 Chloride 92 mmol/L (98-107) L 12/30/23 16:00 Carbon Dioxide 25 mmol/L (22-29) 12/30/23 16:00 Anion Gap 19.2 (5-19) H 12/30/23 16:00 BUN 26 mg/dL (8-23) H 12/30/23 16:00 Creatinine 1.0 mg/dL (0.5-0.9) H 12/30/23 16:00 GFR Calculation 55.5 mL/min (90-130) L 12/30/23 16:00 Glucose 126 mg/dL (65-115) H 12/30/23 16:00 Calculated Osmolality 282 mOsm/kg (285-295) L 12/30/23 16:00 Calcium 8.4 mg/dL (8.5-10.5) L 12/30/23 16:00 Total Bilirubin 0.5 mg/dL (0.15-1.2) 12/30/23 16:00 AST 32 U/L (0-32) 12/30/23 16:00 ALT 27 U/L (0-33) 12/30/23 16:00 Alkaline Phosphatase 79 U/L (35-105) 12/30/23 16:00 Creatine Kinase 437 U/L (26-192) H* 12/30/23 16:00 Total Protein 7.5 g/dL (6.6-8.7) 12/30/23 16:00 Albumin 4.0 g/dL (3.5-5.2) 12/30/23 16:00 Globulin 3.5 g/dL (1.3-4.6) 12/30/23 16:00 Urine Color Dark yellow (Yellow) A 12/30/23 16:21 Urine Appearance Cloudy (CLEAR) A 12/30/23 16:21 Urine pH 5 (5-7) 12/30/23 16:21 Ur Specific [place] 1.020 (1.005-1.030) 12/30/23 16:21 Urine Protein 1+ (Negative) H 12/30/23 16:21 Urine Glucose (UA) Norm (Normal) 12/30/23 16:21 Urine Ketones 1+ (Negative) H 12/30/23 16:21 Urine Blood 2+ (Negative) H 12/30/23 16:21 Urine Nitrate Negative (Negative) 12/30/23 16:21 Urine Bilirubin 1+ (Negative) H 12/30/23 16:21 Urine Urobilinogen 4 mg/dL (Negative) H 12/30/23 16:21 Ur Leukocyte Esterase 2+ (Negative) H 12/30/23 16:21 Urine RBC 10-15 /hpf (0-2) H 12/30/23 16:21 Urine WBC 25-40 /hpf (0-5) H 12/30/23 16:21 Ur Squamous Epith Cells 15-25 /hpf (0-5) H 12/30/23 16:21 Amorphous Sediment Not Reportable 12/30/23 16:21 Urine Bacteria 2+ /hpf (NONE) H 12/30/23 16:21 Salicylates < 0.3 mg/dL (3-10) L 12/30/23 16:00 Acetaminophen < 5.0 ug/mL (10-30) L 12/30/23 16:00 All radiology interpretation(s) finalized by discharge Discharge Plan Discharge Patient Disposition: Home Clinical Impression: Cystitis, Rhabdomyolysis Condition: Stable Prescriptions: New cefdinir 300 mg capsule 300 mg PO BID 7 Days Qty: 14 0RF Zyprexa 5 mg tablet 5 mg PO QPM Qty: 30 0RF cefdinir 300 mg capsule 300 mg PO BID 7 Days Qty: 14 0RF Zyprexa 5 mg tablet 5 mg PO BID Qty: 30 0RF cefdinir 300 mg capsule 300 mg PO BID 7 Days Qty: 14 0RF Discontinued quetiapine [Seroquel] 50 mg Tablet 50 mg PO BID Rx Instructions: pts family states this was an old rx-rx bottle was dated 10/2015 lorazepam 0.5 mg tablet 0.5 mg PO BEDTIME No Action potassium chloride 10 mEq tablet extended release 10 meq PO TID chlorthalidone 25 mg tablet 25 mg PO DAILY diltiazem HCl [Cartia XT] 120 mg capsule,extended release 24hr 120 mg PO DAILY neomycin-polymyxin B-dexameth 3.5mg/mL-10,000 unit/mL-0.1 % drops,suspension 1 drp ophthalmic (eye) BID hydrocodone-acetaminophen 5-325 mg tablet 1 tab PO Q6H PRN (Reason: pain) Qty: 20 0RF Discharge Orders: Discharge ED (Routine); Ordered 12/30/23 Ordered By: Chucho Powell Referrals: Bonnie Méndez, [employer] [Primary Care Provider] - Patient Instructions: Opioid Safety, Pain Management Activity Restrictions/Additional Instructions: Thank you for choosing [facility] for your healthcare needs today. It is very important that you follow up as instructed or that you return to the Emergency Department should you have concerns or if your condition changes or worsens in any way. You are seen today in the emergency room with a fever and complaints of difficulty sleeping. As to your fever you are found to have a cystitis you are given initial dose of antibiotics in the emergency room recommend to start oral antibiotics tomorrow 1 pill twice a day for 7 days. As the difficulty sleeping recommend you stop the lorazepam. You can start Seroquel 50 mg at at bedtime. Also recommend that you establish with a behavioral health clinic for medication management regarding mood depression and sleep disorder. You should follow-up with your doctor for repeat lab work in 2 to 3 days. Coding Level of Care Code ED Take Away Worker for Jasson Henning
[2023-12-30 17:42] LABS: Add Urine Microscopic? YES; Bilirubin Urine 1+ (Negative); Blood Urine 2+ (Negative); Glucose Urine UA Norm (Normal); Ketones Urine 1+ (Negative); Leukocyte Esterase Urine 2+ (Negative); Nitrate Urine Negative (Negative); Protein Urine 1+ (Negative); Urine Appearance Cloudy (CLEAR); Urine Color Dark Yellow (Yellow); Urobilinogen Urine 4 mg/dL (Negative); pH Urine 5 (5-7)
[2023-12-30 17:43] LABS: Add Urine Culture? No; Bacteria Urine 2+ /hpf; Squamous Epithelial Cell Urine 15-25 /hpf (0-5); WBC Urine 25-40 /hpf (0-5)
[2023-12-30] MEDS: sodium chloride 0.9% 1,000 ML 999 ML IV (17:43)
[2023-12-30 17:44] VITALS: BP 158/78; O2SAT 95
[2023-12-30 17:47] LABS: Salicylate < 0.3 mg/dL (3-10)
[2023-12-30 17:52] LABS: Creatine Phosphokinase 437 U/L (26-192)
[2023-12-30] MEDS: cefTRIAXone 1,000 mg SDV 1000 MG IVP (18:07)
[2023-12-30 18:10] VITALS: BP 159/81; PULSE 82; O2SAT 91
[2023-12-30 18:24] LABS: Acetaminophen < 5.0 ug/mL (10-30)
[2023-12-30 19:05] VITALS: PULSE 85; RESP 18; O2SAT 92
== END 2023-12-30 19:06 | disposition home or self-care (01) ==
PROVIDERS: Emergency Provider Family Medicine; PCP Nurse Practitioner Family
DX: M62.82 Rhabdomyolysis (principal); N30.90 Cystitis, unspecified without hematuria; I10 Essential (primary) hypertension
CPT/HCPCS: 36415; 70450; 71045; 80053; 80307; 81001; 82550; 85025; 87040; 96374; 99285; J0696; J7030

== ENCOUNTER 2023-12-31 04:51 | Observation (INO) | payer MEDICARE, MEDICAID, SELFPAY ==
[2023-12-31] VITALS (11 sets, daily range): BP systolic 120–170; BP diastolic 70–104; PULSE 70–99; RESP 15–24; TEMP 36.5–38.6; O2SAT 90–98
--- NOTE | 2023-12-31 05:06 | ED_ITS ---
Documented by User: Anthony Blackwood DO 12/31/23 19:28 HPI - Nausea/Vomiting/Diarrhea 2 General: Chief complaint: Nausea/Vomiting/Diarrhea Stated complaint: N/V Time Seen by Provider: 12/31/23 05:00 History of Present Illness: Patient presents to the ER with complaints of nausea vomiting and insomnia. Patient is Cymro and speaks broken Kinyarwanda and her daughter is beside her as a advertising display rotator. It appears that patient does not slept in approximately 3 days and is now having nausea vomiting and possibly increased confusion secondary to back of sleep. Patient's daughter says that she gets this way very often and when she has a good night sleep and she goes back to her normal self. She says about 4 years ago she was admitted to [facility] for this and got a couple shots and then the next day woke up feeling like her normal self and was discharged home. Patient was just seen here by Dr. Powell, his note was reviewed, it appears he was for similar complaints including not sleeping well, low-grade fever, cough, dysuria, vomiting. She had lab work, urinalysis, chest x-ray, head CT, which showed a mildly elevated CK and potential urinary tract infection. She was prescribed cefdinir and Zyprexa, it appears these were initially sent to the wrong pharmacy then resent to the correct pharmacy. Patient did fill the cefdinir but did not feel the Zyprexa as she said she has used it in the past and it caused bad dreams and her insurance would not cover it and therefore she is requesting some other medicine. EMS did give her 4 mg Zofran on route and she is requesting to eat and drink. Review of Systems 2 General: Reports: 10 or more systems reviewed and unremarkable except in HPI and below PFSH ED 2 PFSH: Medical History Hypertension Neuropathy of right peroneal nerve PTSD (post-traumatic stress disorder) Physical Exam 2 Const: COMMON NORMALS: no acute distress, average body habitus, patient oriented x3, no limitations, healthy appearing, alert and well nourished HENMT: COMMON NORMALS: normocephalic, atraumatic, hearing grossly normal bilaterally, external ears normal, Normal external nose present and moist oral mucous membranes HEAD & SCALP: normocephalic and atraumatic NOSE: Normal external nose present EXTERNAL EAR: Yes external ears normal Neck/C-Spine: COMMON NORMALS: no JVD Chest: COMMONS NORMALS: normal inspection of the chest and normal palpation of entire chest wall Resp: COMMON NORMALS: normal respiratory effort, No retractions, No use of accessory muscles and clear to auscultation bilaterally AUSCULTATION: clear to auscultation bilaterally Cardio: COMMON NORMALS: no JVD, regular rate, regular rhythm, S1 normal heart sound present, S2 normal heart sound present, No gallops present (Cardio) and No clicks present (Cardio) RATE: regular rate RHYTHM: regular rhythm HEART SOUNDS: S1 normal heart sound present and S2 normal heart sound present GI: COMMON NORMALS: Normal to inspection, nondistended, normoactive bowel sounds present, Soft to palpation, non-tender, No hepatosplenomegaly present and no masses PALPATION: Yes Soft to palpation and Yes No hepatosplenomegaly present Neuro: COMMON NORMALS: patient oriented x3 SENSORIUM/ORIENTATION: Yes alert Course 2 Vital Signs: Vital signs: Vital Signs Temperature 100.6 F H 12/31/23 19:26 Pulse Rate 83 12/31/23 19:26 Respiratory Rate 16 12/31/23 19:26 Blood Pressure 148/78 12/31/23 19:26 Pulse Oximetry 91 12/31/23 19:26 Oxygen Delivery Me thod Nasal Cannula 12/31/23 19:26 Oxygen Flow Rate 2 12/31/23 09:45 MDM - Nausea/Vomiting/Diarrhea Medical Decision Making Patient refused further lab work and imaging but said she would allow the fluids and medicine but did not want Seroquel. Review of her visit in 2019 Dr. Luz appeared to have gave her Haldol and Benadryl and this may be the shots that she said worked. Lab Data 12/31/23 07:42 12/31/23 07:42 Radiology Impressions Chest X-Ray 12/31/23 08:15 IMPRESSION: Left lower lung zone infiltrates. Abdomen/Pelvis CT 12/31/23 08:49 IMPRESSION: 1. No intra-abdominal collections, hydronephrosis or obstructing urinary stones. 2. Left lower lobe infiltrates, representing pneumonia. COMMENTS: Consistent with the [place] [employer] [place] [employer]'s Incidental Findings Committee white paper (J Am Lena Radiol 2018): Any incidental renal lesion less than 1 cm or classified as too small to characterize, or any incidental cystic renal lesion characterized as simple-appearing, is likely benign. No follow-up imaging is recommended for these lesions per consensus recommendations based on imaging criteria. Laboratory Results WBC 8.60 10^3/uL (3.29-11.43) 12/31/23 07:42 RBC 4.48 10^6/uL (3.85-5.65) 12/31/23 07:42 Hgb 12.80 g/dL (11.27-16.99) 12/31/23 07:42 Hct 38.8 % (36-47) 12/31/23 07:42 MCV 86.6 fl (85-98) 12/31/23 07:42 MCH 28.6 pg (27-33) 12/31/23 07:42 MCHC 33.0 g/dL (30-55) 12/31/23 07:42 RDW 12.7 % (12.1-15.1) 12/31/23 07:42 Plt Count 167 10^3/cmm (157-399) 12/31/23 07:42 MPV 9.0 fL (7.4-10.4) 12/31/23 07:42 Neut % (Auto) 84.5 % 12/31/23 07:42 Lymph % (Auto) 7.2 % 12/31/23 07:42 Randall % (Auto) 7.7 % 12/31/23 07:42 Eos % (Auto) 0.0 % 12/31/23 07:42 Baso % (Auto) 0.0 % 12/31/23 07:42 Neut # (Auto) 7.27 10^3/uL (1.8-7.7) 12/31/23 07:42 Lymph # (Auto) 0.6 10^3/uL (0.8-4.8) L 12/31/23 07:42 Randall # (Auto) 0.7 10^3/uL (0.2-0.9) 12/31/23 07:42 Eos # (Auto) 0.0 10^3/uL (0.0-0.8) 12/31/23 07:42 Baso # (Auto) 0.0 10^3/uL (0.0-0.1) 12/31/23 07:42 Nucleated RBC % (auto) 0 % 12/31/23 07:42 Nucleated RBCs # 0.0 /100WBC 12/31/23 07:42 Sodium 134 mmol/L (136-145) L 12/31/23 07:42 Potassium 2.9 mmol/L (3.5-5.1) L 12/31/23 07:42 Chloride 97 mmol/L (98-107) L 12/31/23 07:42 Carbon Dioxide 23 mmol/L (22-29) 12/31/23 07:42 Anion Gap 16.9 (5-19) 12/31/23 07:42 BUN 17 mg/dL (8-23) 12/31/23 07:42 Creatinine 0.7 mg/dL (0.5-0.9) 12/31/23 07:42 GFR Calculation 83.7 mL/min (90-130) L 12/31/23 07:42 Glucose 119 mg/dL (65-115) H 12/31/23 07:42 Estimat Average Glucose 114 12/31/23 07:42 Hemoglobin A1c 5.6 % (4.0-6.0) 12/31/23 07:42 Calculated Osmolality 281 mOsm/kg (285-295) L 12/31/23 07:42 Lactic Acid 0.8 mmol/L (0.5-2.2) 12/31/23 07:42 Calcium 7.7 mg/dL (8.5-10.5) L 12/31/23 07:42 Magnesium 1.8 mg/dL (1.7-2.3) 12/31/23 07:42 Total Bilirubin 0.3 mg/dL (0.15-1.2) 12/31/23 07:42 AST 45 U/L (0-32) H 12/31/23 07:42 ALT 33 U/L (0-33) 12/31/23 07:42 Alkaline Phosphatase 66 U/L (35-105) 12/31/23 07:42 Creatine Kinase 700 U/L (26-192) H* 12/31/23 07:42 Total Protein 6.3 g/dL (6.6-8.7) L 12/31/23 07:42 Albumin 3.3 g/dL (3.5-5.2) L 12/31/23 07:42 Globulin 3.0 g/dL (1.3-4.6) 12/31/23 07:42 Adenovirus (PCR) Not detected (NOT DETECT) 12/31/23 08:27 C. pneumoniae DNA (PCR) Not detected (NOT DETECT) 12/31/23 08:27 Coronavirus 229E (PCR) Not detected (NOT DETECT) 12/31/23 08:27 Human Metapneumovir PCR Not detected (NOT DETECT) 12/31/23 08:27 Influenza A (H1) PCR Not detected (NOT DETECT) 12/31/23 08:27 Influ A (H1/09) PCR Not detected (NOT DETECT) 12/31/23 08:27 Influenza A (H3) PCR Not detected (NOT DETECT) 12/31/23 08:27 Influenza Type A (PCR) Not detected (NOT DETECT) 12/31/23 08:27 Influenza Type B (PCR) Not detected (NOT DETECT) 12/31/23 08:27 M. pneumoniae (PCR) Not detected (NOT DETECT) 12/31/23 08:27 Parainfluenza 1 (PCR) Not detected (NOT DETECT) 12/31/23 08:27 Parainfluenza 2 (PCR) Not detected (NOT DETECT) 12/31/23 08:27 Parainfluenza 3 (PCR) Not detected (NOT DETECT) 12/31/23 08:27 Parainfluenza 4 (PCR) Not detected (NOT DETECT) 12/31/23 08:27 RSV Type A (PCR) Not detected (NOT DETECT) 12/31/23 08:27 RSV Type B (PCR) Not detected (NOT DETECT) 12/31/23 08:27 Entero/Rhino (PCR) Not detected (NOT DETECT) 12/31/23 08:27 SARS-CoV-2 (PCR) Not detected (NOT DETECT) 12/31/23 08:27 Discharge Plan Discharge Patient Disposition: Placed in Observation Admit Provider: Zander Aguillon Clinical Impression: Cystitis, Rhabdomyolysis, Noncompliance by declining service, Pneumonia Sign Out Sign Out Data: Patient Sign Out occurred on 12/31/23 at 07:10. Patient's care was discussed, and care was transferred from Anthony Blackwood DO to Chucho Powell DO. Coding Level of Care Code ED Community Organization Worker for [employer] F[employer] Documented by User: Chucho Powell DO 12/31/23 10:40 HPI - Nausea/Vomiting/Diarrhea 2 General: Chief complaint: Nausea/Vomiting/Diarrhea Stated complaint: N/V Time Seen by Provider: 12/31/23 05:00 PFSH ED 2 PFSH: Medical History Hypertension Neuropathy of right peroneal nerve PTSD (post-traumatic stress disorder) Course 2 Vital Signs: Vital signs: Vital Signs Temperature 100.6 F H 12/31/23 19:26 Pulse Rate 83 12/31/23 19:26 Respiratory Rate 16 12/31/23 19:26 Blood Pressure 148/78 12/31/23 19:26 Pulse Oximetry 91 12/31/23 19:26 Oxygen Delivery Me thod Nasal Cannula 12/31/23 19:26 Oxygen Flow Rate 2 12/31/23 09:45 MDM - Nausea/Vomiting/Diarrhea Medical Decision Making Patient refused further lab work and imaging but said she would allow the fluids and medicine but did not want Seroquel. Review of her visit in 2019 Dr. Luz appeared to have gave her Haldol and Benadryl and this may be the shots that she said worked. Care assumed at change of shift. When seen her yesterday she had some mild rhabdomyolysis of fever and a cystitis. We discharged her home with cefdinir. Concerned that part of the reason she was having difficulty sleeping was because she was using Ativan on such a regular basis recommend she stop that go back Seroquel they did not want to use the Seroquel so instead she was given a prescription for Zyprexa. I did not order picker/assembler the Zyprexa and There are some question about whether or not they took the cefdinir. She is refusing further lab work when she returns she still running low-grade fever. After receiving Benadryl and Haldol she was sedate believe she has some sleep apnea and her sat reduced she required supplemental oxygen. Lab Data 12/31/23 07:42 12/31/23 07:42 Radiology Impressions Chest X-Ray 12/31/23 08:15 IMPRESSION: Left lower lung zone infiltrates. Abdomen/Pelvis CT 12/31/23 08:49 IMPRESSION: 1. No intra-abdominal collections, hydronephrosis or obstructing urinary stones. 2. Left lower lobe infiltrates, representing pneumonia. COMMENTS: Consistent with the [place] [employer]'s Incidental Findings Committee white paper (J Am Lena Radiol 2018): Any incidental renal lesion less than 1 cm or classified as too small to characterize, or any incidental cystic renal lesion characterized as simple-appearing, is likely benign. No follow-up imaging is recommended for these lesions per consensus recommendations based on imaging criteria. Laboratory Results WBC 8.60 10^3/uL (3.29-11.43) 12/31/23 07:42 RBC 4.48 10^6/uL (3.85-5.65) 12/31/23 07:42 Hgb 12.80 g/dL (11.27-16.99) 12/31/23 07:42 Hct 38.8 % (36-47) 12/31/23 07:42 MCV 86.6 fl (85-98) 12/31/23 07:42 MCH 28.6 pg (27-33) 12/31/23 07:42 MCHC 33.0 g/dL (30-55) 12/31/23 07:42 RDW 12.7 % (12.1-15.1) 12/31/23 07:42 Plt Count 167 10^3/cmm (157-399) 12/31/23 07:42 MPV 9.0 fL (7.4-10.4) 12/31/23 07:42 Neut % (Auto) 84.5 % 12/31/23 07:42 Lymph % (Auto) 7.2 % 12/31/23 07:42 Randall % (Auto) 7.7 % 12/31/23 07:42 Eos % (Auto) 0.0 % 12/31/23 07:42 Baso % (Auto) 0.0 % 12/31/23 07:42 Neut # (Auto) 7.27 10^3/uL (1.8-7.7) 12/31/23 07:42 Lymph # (Auto) 0.6 10^3/uL (0.8-4.8) L 12/31/23 07:42 Randall # (Auto) 0.7 10^3/uL (0.2-0.9) 12/31/23 07:42 Eos # (Auto) 0.0 10^3/uL (0.0-0.8) 12/31/23 07:42 Baso # (Auto) 0.0 10^3/uL (0.0-0.1) 12/31/23 07:42 Nucleated RBC % (auto) 0 % 12/31/23 07:42 Nucleated RBCs # 0.0 /100WBC 12/31/23 07:42 Sodium 134 mmol/L (136-145) L 12/31/23 07:42 Potassium 2.9 mmol/L (3.5-5.1) L 12/31/23 07:42 Chloride 97 mmol/L (98-107) L 12/31/23 07:42 Carbon Dioxide 23 mmol/L (22-29) 12/31/23 07:42 Anion Gap 16.9 (5-19) 12/31/23 07:42 BUN 17 mg/dL (8-23) 12/31/23 07:42 Creatinine 0.7 mg/dL (0.5-0.9) 12/31/23 07:42 GFR Calculation 83.7 mL/min (90-130) L 12/31/23 07:42 Glucose 119 mg/dL (65-115) H 12/31/23 07:42 Estimat Average Glucose 114 12/31/23 07:42 Hemoglobin A1c 5.6 % (4.0-6.0) 12/31/23 07:42 Calculated Osmolality 281 mOsm/kg (285-295) L 12/31/23 07:42 Lactic Acid 0.8 mmol/L (0.5-2.2) 12/31/23 07:42 Calcium 7.7 mg/dL (8.5-10.5) L 12/31/23 07:42 Magnesium 1.8 mg/dL (1.7-2.3) 12/31/23 07:42 Total Bilirubin 0.3 mg/dL (0.15-1.2) 12/31/23 07:42 AST 45 U/L (0-32) H 12/31/23 07:42 ALT 33 U/L (0-33) 12/31/23 07:42 Alkaline Phosphatase 66 U/L (35-105) 12/31/23 07:42 Creatine Kinase 700 U/L (26-192) H* 12/31/23 07:42 Total Protein 6.3 g/dL (6.6-8.7) L 12/31/23 07:42 Albumin 3.3 g/dL (3.5-5.2) L 12/31/23 07:42 Globulin 3.0 g/dL (1.3-4.6) 12/31/23 07:42 Adenovirus (PCR) Not detected (NOT DETECT) 12/31/23 08:27 C. pneumoniae DNA (PCR) Not detected (NOT DETECT) 12/31/23 08:27 Coronavirus 229E (PCR) Not detected (NOT DETECT) 12/31/23 08:27 Human Metapneumovir PCR Not detected (NOT DETECT) 12/31/23 08:27 Influenza A (H1) PCR Not detected (NOT DETECT) 12/31/23 08:27 Influ A (H1/09) PCR Not detected (NOT DETECT) 12/31/23 08:27 Influenza A (H3) PCR Not detected (NOT DETECT) 12/31/23 08:27 Influenza Type A (PCR) Not detected (NOT DETECT) 12/31/23 08:27 Influenza Type B (PCR) Not detected (NOT DETECT) 12/31/23 08:27 M. pneumoniae (PCR) Not detected (NOT DETECT) 12/31/23 08:27 Parainfluenza 1 (PCR) Not detected (NOT DETECT) 12/31/23 08:27 Parainfluenza 2 (PCR) Not detected (NOT DETECT) 12/31/23 08:27 Parainfluenza 3 (PCR) Not detected (NOT DETECT) 12/31/23 08:27 Parainfluenza 4 (PCR) Not detected (NOT DETECT) 12/31/23 08:27 RSV Type A (PCR) Not detected (NOT DETECT) 12/31/23 08:27 RSV Type B (PCR) Not detected (NOT DETECT) 12/31/23 08:27 Entero/Rhino (PCR) Not detected (NOT DETECT) 12/31/23 08:27 SARS-CoV-2 (PCR) Not detected (NOT DETECT) 12/31/23 08:27 All radiology interpretation(s) finalized by discharge Discharge Plan Discharge Patient Disposition: Placed in Observation Admit Provider: Zander Aguillon Clinical Impression: Cystitis, Rhabdomyolysis, Noncompliance by declining service, Pneumonia Sign Out Sign Out Data: Patient Sign Out occurred on 12/31/23 at 07:10. Patient's care was discussed, and care was transferred from Anthony Blackwood DO to Chucho Powell DO. Coding Level of Care Code ED Community Organization Worker for Jasson Henning
[2023-12-31] MEDS: sodium chloride 0.9% 1,000 ML 999 ML IV (05:16)
[2023-12-31] MEDS: diphenhydrAMINE 50 mg/mL SDV 1mL IVP (05:16)
[2023-12-31] MEDS: haloperidol inj 5 mg/mL INJ 1 mL IVP (05:16)
--- NOTE | 2023-12-31 05:31 | PC.NURSE ---
Patient's daughter verbalized to this nurse that she wanted her mother/the patient to be admitted in order for patient to get rest.
--- NOTE | 2023-12-31 05:32 | PC.NURSE ---
Daughter of patient told this nurse that patient did not get prescription of Seroquel filled because, in the past, it gave the patient nightmares. Dr Blackwood notified.
--- NOTE | 2023-12-31 05:51 | PC.NURSE ---
Patient had refused lab work. Dr Blackwood was notified at time of refusal.
--- NOTE | 2023-12-31 07:23 | PC.NURSE ---
DR CARNEY REQUESTED THIS NURSE COME WITH HIM TO TALK TO THE PT AND PT DAUGHTER. DR CARNEY EDUCATED PT DAUGHTER ON THE NEED FOR LAB WORK TO BE DONE, EVEN THOUGH SHE PREVIOUSLY REFUSED LAB WORK. PT DAUGHTER AGREED TO NEW LAB WORK BUT STILL REQUESTED FOR PT TO BE ADMITTED. DR CARNEY EDUCATED PT DAUGHTER THAT EVEN THOUGH WE ARE GETTING LAB WORK, WE CANNOT GUARANTEE THE PT WOULD BE ADMITTED. PT DAUGHTER STATES I AM JUST SO TIRED. SHE NEEDS TO STAY OVERNIGHT IN ORDER TO REST. DR CARNEY VERBALIZED UNDERSTANDING AND EDUCATED PT DAUGHTER THAT WE CAN'T ADMIT JUST FOR SLEEP. PT DAUGHTER VERBALIZED THAT SHE WOULD ALLOW THE BLOOD WORK FOR FURTHER TESTING.
[2023-12-31] MEDS: cefTRIAXone 1,000 mg SDV 1000 MG IVP (07:41)
--- NOTE | 2023-12-31 07:47 | PC.NURSE ---
THIS NURSE WENT IN TO PT ROOM TO ADMINISTER ANTIBIOTIC TO PT. PT DAUGHTERS STATES THIS IS THE FIRST TIME SHES SNORED IN DAYS. IT WORRIES ME TO TEARS. THIS NURSE ASKED THE PT DAUGHTER TO CLARIFY IF THE SNORING WORRIED HER, BUT DAUGHTER STATES NO, SHE HAS NOT SLEPT IN DAYS. THIS NURSE VERBALIZED UNDERSTANDING. PT DAUGHTER STATED THEY GAVE HER A SLEEPING PILL YESTERDAY AND IT HELPED. WE WENT HOME AND IT DID NOT WORK. THIS NURSE CLARIFIED WITH PT DAUGHTER THAT THERE WAS A MEDICATION PRESCRIBED TO HELP HER SLEEP, BUT THEY WERE UNABLE TO PICK IT UP. PT DAUGHTER STATES WELL WE WERE NOT ABLE TO PICK IT UP. SO IT DID NOT WORK. SO THAT IS WHY WE ARE HERE AGAIN. SHE NEEDS TO STAY OVERNIGHT. THIS NURSE EDUCATED ON THE ADMISSION PROCESS AND DAUGHTER STATES WE HAVE BEEN ADMITTED FOR SLEEP BEFORE. THIS NURSE VERBALIZED UNDERSTANDING AND TOLD DAUGHTER THAT WE WOULD WAIT ON RESULTS FROM THE LAB WORK AND WE WOULD BE ABLE TO UPDATE PT RESULTS.
[2023-12-31 07:49] LABS: Hematocrit 38.8 % (36-47); Lymphocytes # 0.6 10^3/uL (0.8-4.8); Lymphocytes % 7.2 %; Mean Corpuscular Hemoglobin 28.6 pg (27-33); Mean Corpuscular Volume 86.6 fl (85-98); Monocytes # 0.7 10^3/uL (0.2-0.9); Monocytes % 7.7 %; Neutrophils # 7.27 10^3/uL (1.8-7.7); Neutrophils % 84.5 %; Nucleated Red Blood Cells % 0 %; Platelet Count 167 10^3/cmm (157-399); Red Blood Count 4.48 10^6/uL (3.85-5.65); Red Cell Distribution Width 12.7 % (12.1-15.1)
[2023-12-31 08:12] LABS: Alanine Aminotransferase 33 U/L (0-33); Albumin Level 3.3 g/dL (3.5-5.2); Alkaline Phosphatase 66 U/L (35-105); Anion Gap 16.9 (5-19); Aspartate Amino Transferase 45 U/L (0-32); Blood Urea Nitrogen 17 mg/dL (8-23); Calcium 7.7 mg/dL (8.5-10.5); Carbon Dioxide 23 mmol/L (22-29); Chloride 97 mmol/L (98-107); Glomerular Filtration Rate 83.7 mL/min (90-130); Glucose 119 mg/dL (65-115); Lactic Sepsis W/Reflex 0.8 mmol/L (0.5-2.2); Osmolality Calculated 281 mOsm/kg (285-295); Sodium 134 mmol/L (136-145); Total Bilirubin 0.3 mg/dL (0.15-1.2); Total Protein 6.3 g/dL (6.6-8.7)
--- NOTE | 2023-12-31 08:15 | XRR_ITS ---
PROCEDURE INFORMATION: Exam: XR Chest Exam date and time: 12/31/2023 8:24 AM Age: 68 years old Clinical indication: Cough and dyspnea; Additional info: Dyspnea/cough TECHNIQUE: Imaging protocol: Radiologic exam of the chest. Views: 1 view. COMPARISON: CR (CHEST, ) 12/30/2023 4:37 PM FINDINGS: Lungs: There is left lower lung zone infiltrates. Right lung is clear. Pleural spaces: Unremarkable. No pleural effusion. No pneumothorax. Heart/Mediastinum: Unremarkable. No cardiomegaly. Vasculature: Unfolding of the thoracic aorta. Bones/joints: Moderate degenerative disease of bilateral acromioclavicular joints. Left rotator cuff calcific tendinosis. XR/XR chest 1V portable [id number] IMPRESSION: Left lower lung zone infiltrates.
[2023-12-31] MEDS: acetaminophen 500 mg Tablet 1000 MG PO (08:22)
--- NOTE | 2023-12-31 08:49 | CTR_ITS ---
PROCEDURE INFORMATION: Exam: CT Abdomen And Pelvis Without Contrast Exam date and time: 12/31/2023 9:24 AM Age: 68 years old Clinical indication: Fever; Prior surgery; Surgery date: 6+ months; Surgery type: Hernia; Additional info: Cystitis TECHNIQUE: Imaging protocol: Computed tomography of the abdomen and pelvis without contrast. Radiation optimization: All CT scans at this facility use at least one of these dose optimization techniques: automated exposure control; mA and/or kV adjustment per patient size (includes targeted exams where dose is matched to clinical indication); or iterative reconstruction. COMPARISON: CR (CHEST, ) 12/31/2023 8:24 AM RADIATION DOSE METRICS: Total DLP (mGy-cm): 861.44 FINDINGS: Lungs: There are left lower lobe infiltrates with ground-glass opacities. There are right lower lobe atelectatic changes. Pleural spaces: Trace left pleural effusion. Diaphragm: Small hiatal hernia. Liver: Mild hepatic steatosis. No suspicious hepatic lesion. Gallbladder and biliary ducts: Normal. No calcified stones. No ductal dilation. Pancreas: Normal. No ductal dilation. Spleen: Normal. No splenomegaly. Adrenal glands: Normal. No mass. Kidneys and ureters: Simple cyst in the interpolar region of the right kidney measuring 4.4 x 4.7 cm. Bilateral perinephric fat stranding. No hydronephrosis on either side. Stomach and bowel: Diverticulosis of the descending and sigmoid colon no changes of diverticulitis. Appendix: No evidence of appendicitis. Intraperitoneal space: Unremarkable. No free air. No significant fluid collection. Vasculature: Vascular calcifications. Pelvic phleboliths. Lymph nodes: Unremarkable. No enlarged lymph nodes. Urinary bladder: Unremarkable as visualized. Reproductive: Unremarkable as visualized. Bones/joints: Mild degenerative disease of bilateral sacroiliac joints and symphysis pubis. Mild curvature of the lower thoracic spine convex to the right. Mild degenerative disease of bilateral hip joints. Mild retrolisthesis of L1 over L2. Chronic mild to moderate compression deformities of L1, T11 and T10 vertebral bodies. [facility] changes of the lower thoracic spine. Soft tissues: Bilateral fat containing inguinal hernias. Fat containing umbilical hernia. CT/CT kidney stone [id number] IMPRESSION: 1. No intra-abdominal collections, hydronephrosis or obstructing urinary stones. 2. Left lower lobe infiltrates, representing pneumonia. COMMENTS: Consistent with the [place] [employer]'s Incidental Findings Committee white paper (J Am Lena Radiol 2018): Any incidental renal lesion less than 1 cm or classified as too small to characterize, or any incidental cystic renal lesion characterized as simple-appearing, is likely benign. No follow-up imaging is recommended for these lesions per consensus recommendations based on imaging criteria.
[2023-12-31 09:02] LABS: Potassium 2.9 mmol/L (3.5-5.1)
[2023-12-31 09:03] LABS: Creatine Phosphokinase 700 U/L (26-192)
[2023-12-31 09:33] LABS: Magnesium 1.8 mg/dL (1.7-2.3)
[2023-12-31] MEDS: azithromycin 500 MG in sodium chloride 0.9% 250 ML 250 MG IV (09:40)
[2023-12-31] MEDS: potassium chloride oral liq 20 mEq/15 mL UDC 40 MEQ PO (09:42)
--- NOTE | 2023-12-31 09:44 | PC.NURSE ---
ATTEMPTED TO PLACE PT IN A GOWN DUE TO PT CLOTHES BEING WET. PT DAUGHTER ALSO HELPED THIS NURSE ATTEMPT TO PUT PT IN A HOSPITAL GOWN. PT REFUSED AT THIS TIME.
[2023-12-31 10:25] LABS: Adenovirus Not Detected (NOT DETECT); Chlamydia Pneumoniae Not Detected (NOT DETECT); Coronavirus 229E,HKU1,NL63,OC4 Not Detected (NOT DETECT); Human Metapneumovirus Not Detected (NOT DETECT); Human Rhinovirus/Enterovirus Not Detected (NOT DETECT); Influenza A Not Detected (NOT DETECT); Influenza A H1 Not Detected (NOT DETECT); Influenza A H1-2009 Not Detected (NOT DETECT); Influenza A H3 Not Detected (NOT DETECT); Influenza B Not Detected (NOT DETECT); Mycoplasma Pneumoniae Not Detected (NOT DETECT); Parainfluenza Virus Type 1 Not Detected (NOT DETECT); Parainfluenza Virus Type 2 Not Detected (NOT DETECT); Parainfluenza Virus Type 3 Not Detected (NOT DETECT); Parainfluenza Virus Type 4 Not Detected (NOT DETECT); Respiratory Syncytial Virus A Not Detected (NOT DETECT); Respiratory Syncytial Virus B Not Detected (NOT DETECT); SARS-COV-2 Not Detected (NOT DETECT)
--- NOTE | 2023-12-31 11:20 | P.HP_ITS ---
Providers/Chief Complaint 2 Admitting Physician: Zander Aguillon Primary Care Provider: Bonnie Méndez NP Chief Complaint: N/V History of Present Illness 68-year-old lady with history of insomnia, HTN, has not been feeling well for several days, with malaise, some productive cough, fever, vomiting, came in to ER for evaluation yesterday, was found to also have worsening insomnia, was found to have mild rhabdomyolysis, leukocytosis, fever, she was given Rocephin, received Zyprexa, discharged with cefdinir. They return to the emergency room today due to her having again a high fever, with continued malaise. Chest x-ray in ER with left lower lung zone infiltrate. UA with 25-40 WBC, 10-15 RBC, 15-25 SCC. Urine dark yellow, cloudy, 2+ bacteria. She is currently sleeping after receiving Haldol and Benadryl in ER, but does wake up to answer some questions. Most history to be obtained from her daughter. Daughter also reports mother having confusion. Penicillin allergy was a rash a long time ago. Review of Systems 2 Const: Reports: fever(s), chills and malaise ENMT: Denies: throat pain Card: Denies: chest pain, edema, pre-syncope or dyspnea on exertion Resp: Reports: productive cough; Denies: dyspnea, change in phlegm color or hemoptysis GI: Denies: abdominal pain, nausea, vomiting, diarrhea, constipation, hematochezia or melena : Denies: flank pain, urinary frequency or hematuria Musc: Denies: back pain, joint swelling or joint redness Skin/Breast: Denies: rash or new lesions Neuro: Denies: headache(s) Endo: Denies: polyuria or polydipsia Medications/Allergies Home Medications Medication Instructions Recorded Confirmed Last Taken Type chlorthalidone 25 mg tablet 25 mg PO DAILY 02/04/20 11/29/22 11/28/22 History diltiazem HCl 120 mg 120 mg PO DAILY 02/04/20 11/29/22 11/28/22 History capsule,extended release 24 hr (Cartia XT) potassium chloride 10 mEq 10 meq PO TID 02/04/20 11/29/22 11/28/22 History tablet,extended release hydrocodone 5 mg-acetaminophen 325 1 tab PO Q6H PRN pain #20 tabs 11/29/22 Unknown Rx mg tablet nopgcaid-hevflniqx-imryvikm 3.5 1 drp ophthalmic (eye) BID 11/29/22 11/29/22 11/28/22 History mg/mL-10,000 unit/mL-0.1% eye drops cefdinir 300 mg capsule 300 mg PO BID 7 days #14 caps 12/30/23 Unknown Rx cefdinir 300 mg capsule 300 mg PO BID 7 days #14 caps 12/30/23 Unknown Rx cefdinir 300 mg capsule 300 mg PO BID 7 days #14 caps 12/30/23 Unknown Rx olanzapine 5 mg tablet (Zyprexa) 5 mg PO BID #30 tabs 12/30/23 Unknown Rx olanzapine 5 mg tablet (Zyprexa) 5 mg PO QPM #30 tabs 12/30/23 Unknown Rx Allergies Allergy/AdvReac Type Severity Reaction Status Date / Time trazodone Allergy Severe hallucinati Verified 12/30/23 15:18 ons bee venom protein (honey bee) Allergy ALGY-Anaphy Verified 12/30/23 15:18 laxis Penicillins Allergy Unknown Verified 12/30/23 15:18 PFSH Acute 2 PFSH: Medical History Hypertension Neuropathy of right peroneal nerve PTSD (post-traumatic stress disorder) Vitals/I&O/Wt Last Vital Signs Temp 98.8 F 12/31/23 09:45 Pulse 72 12/31/23 09:45 Resp 24 H 12/31/23 06:45 BP 158/89 12/31/23 09:45 Pulse Ox 95 12/31/23 09:45 O2 Del Method Nasal Cannula 12/31/23 10:12 O2 Flow Rate 2 12/31/23 09:45 12/30/23 12/31/23 12/31/23 22:59 06:59 14:59 Intake Total 1250 / 1250 Balance 1250 / 1250 Weight last 48 hrs Weight 94.302 kg Physical Exam 2 Const: COMMON NORMALS: patient oriented x3 GENERAL APPEARANCE: cooperative NUTRITIONAL APPEARANCE: obese OTHER: Wakes up to voice. HENMT: COMMON NORMALS: oropharynx normal Neck/C-Spine: COMMON NORMALS: no JVD Resp: COMMON NORMALS: normal respiratory effort and clear to auscultation bilaterally AUSCULTATION: clear to auscultation bilaterally Cardio: COMMON NORMALS: no JVD, regular rhythm, S1 normal heart sound present, S2 normal heart sound present and No murmurs present (Cardio) RHYTHM: regular rhythm HEART SOUNDS: S1 normal heart sound present and S2 normal heart sound present GI: COMMON NORMALS: Normal to inspection, nondistended, normoactive bowel sounds present, Soft to palpation and non-tender PALPATION: Yes Soft to palpation Extremity: COMMON NORMALS: no joint enlargement and no pedal edema Neuro: COMMON NORMALS: moves all extremities SENSORIUM/ORIENTATION: Yes alert Skin: COMMON NORMALS: no rashes or lesions noted GENERAL SKIN EXAM: no rashes or lesions noted Sepsis: Is patient septic: No Focused sepsis exam: Extremities warm, perfused, no mottling or cyanosis. Date exam was performed: 12/31/23 Time exam was performed: 10:45 Data 12/31/23 07:42 12/31/23 07:42 A&P Assessment and plan (1) Pneumonia: Pneumonia with new oxygen requirement, 2 L nasal cannula oxygen, left lower lung infiltrate: Productive cough, possible sepsis with fever 101.5, tachypnea 24, acute encephalopathy. Less likely sepsis but collect blood cultures. Lactic acid reviewed, 0.8. Continue ceftriaxone, azithromycin, monitor for risk of QT prolongation. Obtain EKG. Collect sputum culture. Continue nasal cannula oxygen support, wean down as tolerating. Not normally on O2. Appears to have possibly concomitant sleep apnea, snores at night. Also with insomnia, was prescribed lorazepam for sleeping aid. This does not seem to have worked well for her. Discussed to discontinue medication, discussed possible risks with benzodiazepines. (2) Complicated UTI (urinary tract infection): Reviewed vitals, CBC, CMP, UA, CT abdomen pelvis, noted simple cyst, no obstruction, but is noted to have bilateral perinephric stranding, with complicated UTI, pyelonephritis, no stone or hydronephrosis. With acute encephalopathy. Reviewed prior cultures. Continue ceftriaxone, follow-up urine culture. Requested. Requesting also blood culture given possible sepsis with fever, tachypnea, encephalopathy. Lactic acid is normal. Sepsis less likely. She was started on IV fluids, monitor for risk of fluid overload. Will reduce rate as well down to 75 mill per hour. (3) Acute encephalopathy: Acute metabolic encephalopathy secondary to complicated UTI, pneumonia, possible sepsis. Daughter reports confusion at home. She had also been having insomnia. Appears to be having delirium. Here also received Haldol, Benadryl. She is somnolent, currently wakes up to voice, at the moment appears to be responding appropriately, but falls right back asleep sometimes midsentence. Treat underlying conditions, reorient. Fall precautions. Currently no need for one-to-one sitter unless things change. (4) Rhabdomyolysis: CK7 100. She was started on IV fluids. Will reduce rate. (5) Hypokalemia: Received potassium. Recheck potassium level. Check magnesium. (6) Hypertension: Currently hypertensive, 158/89. Requesting to confirm home medications. (7) Hyperglycemia: Glucose noted 119. Possibly related to infection, possible sepsis. Without reported history of diabetes. Follow-up glucose level. Check A1c. Plan Insomnia, snoring: Has tried a number of sleep aids including trazodone which gave her bad dreams, melatonin which did not work for her, and seems neither did lorazepam. Currently presenting with pneumonia. Discussed risks with benzodiazepines, risk respiratory depression, mental status changes, as they do not seem to work for her either recommended discontinuation. Would benefit from follow-up for arrangements for a sleep study as per discussion with her daughter. Attestations 2 Medical Necessity Statement*: Place in observation for additional assessment management of complicated UTI, pneumonia, acute encephalopathy, possible sepsis. Diagnoses Pneumonia J18.9 Complicated UTI (urinary tract infection) N39.0 Acute encephalopathy G93.40 Rhabdomyolysis M62.82 Hypokalemia E87.6 Hypertension I10 Hyperglycemia R73.9
[2023-12-31] MEDS: sodium chloride 0.9% 1,000 ML 75 ML IV (12:10)
[2023-12-31 13:03] LABS: Estmated Average Glucose 114; Hemoglobin A1C 5.6 % (4.0-6.0)
--- NOTE | 2023-12-31 13:20 | ECG_ITS ---
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 Measurements Intervals [place] Rate: 84 P: 56 HI: 185 QRS: -6 QRSD: 117 T: 69 QT: 383 QTc: 454 Interpretive Statements SINUS RHYTHM MODERATE INTRAVENTRICULAR CONDUCTION DELAY [110+ ms QRS DURATION] Compared to ECG 02/04/2020 13:30:28 Intraventricular conduction delay now present T-wave abnormality no longer present Electronically Signed On 01-01-2024 7:12:44 CDT by Bharathi Burroughs M.D. [id number]
[2023-12-31] MEDS: acetaminophen 325 mg Tablet 650 MG PO (16:41)
[2023-12-31] MEDS: ondansetron 2 mg/ML SDV 2 mL 4 MG IVP (22:50)
[2024-01-01] MEDS: ketorolac 30 mg/mL INJ 15 MG IVP (00:42)
[2024-01-01] MEDS: sodium chloride 0.9% 1,000 ML 75 ML IV (02:57)
--- NOTE | 2024-01-01 03:48 | PC.NURSE ---
Patient's daughter has refused labs to be drawn on patient this morning.
[2024-01-01 04:00] VITALS: BP 158/92; PULSE 88; RESP 20; TEMP 37.6; O2SAT 91
[2024-01-01 07:31] VITALS: BP 145/74; PULSE 85; RESP 17; TEMP 37.7; O2SAT 90
[2024-01-01] MEDS: cefTRIAXone 1,000 mg SDV 1000 MG IVP (08:47)
[2024-01-01 09:15] LABS: Basophils % 0.4 %; Lymphocytes # 0.6 10^3/uL (0.8-4.8); Lymphocytes % 8.1 %; Mean Corpuscular HGB Conc 32.9 g/dL (30-55); Mean Corpuscular Hemoglobin 28.6 pg (27-33); Mean Corpuscular Volume 86.9 fl (85-98); Mean Platelet Volume 9.1 fL (7.4-10.4); Monocytes # 0.6 10^3/uL (0.2-0.9); Monocytes % 7.9 %; Neutrophils # 6.42 10^3/uL (1.8-7.7); Neutrophils % 82.8 %; Nucleated Red Blood Cells % 0 %; Platelet Count 190 10^3/cmm (157-399); Red Blood Count 4.72 10^6/uL (3.85-5.65); Red Cell Distribution Width 12.8 % (12.1-15.1); White Blood Count 7.75 10^3/uL (3.29-11.43)
[2024-01-01 09:27] LABS: Alanine Aminotransferase 54 U/L (0-33); Albumin Level 2.8 g/dL (3.5-5.2); Alkaline Phosphatase 69 U/L (35-105); Anion Gap 12.7 (5-19); Aspartate Amino Transferase 67 U/L (0-32); Blood Urea Nitrogen 10 mg/dL (8-23); Calcium 7.7 mg/dL (8.5-10.5); Carbon Dioxide 26 mmol/L (22-29); Chloride 99 mmol/L (98-107); Globulin 3.1 g/dL (1.3-4.6); Glucose 145 mg/dL (65-115); Magnesium 1.8 mg/dL (1.7-2.3); Osmolality Calculated 282 mOsm/kg (285-295); Sodium 135 mmol/L (136-145); Total Bilirubin 0.2 mg/dL (0.15-1.2); Total Protein 5.9 g/dL (6.6-8.7)
[2024-01-01 09:38] LABS: Potassium 2.7 mmol/L (3.5-5.1)
[2024-01-01] MEDS: azithromycin 500 MG in sodium chloride 0.9% 250 ML 250 MG IV (10:07)
[2024-01-01] MEDS: dilTIAZem ER (24HR) 120 mg Capsule PO (11:18)
[2024-01-01] MEDS: potassium chloride ER 20 mEq Tablet 40 MEQ PO (11:18)
[2024-01-01] MEDS: magnesium sulfate premix 1 GM/100 ML PIGGYBACK IV (11:19)
[2024-01-01 12:00] VITALS: BP 158/82; PULSE 82; RESP 18; TEMP 37.4; O2SAT 91
--- NOTE | 2024-01-01 13:58 | P.DS_ITS ---
Discharge Providers Date of Admission: 12/31/23 08:50 Date of Discharge: January 01, 2024 Attending Provider at Admission: Zander Aguillon Attending Provider at Discharge: Zander Aguillon Primary Care Provider: Bonnie Méndez NP Diagnoses at Discharge Discharge Diagnosis (1) Pneumonia: Status: Acute (2) Complicated UTI (urinary tract infection): Status: Acute (3) Acute encephalopathy: Status: Acute (4) Rhabdomyolysis: Status: Acute (5) Hypokalemia: Status: Acute (6) Hypertension: Status: Acute (7) Hyperglycemia: Status: Acute Reason for Visit Reason for Visit: N/V Brief History: 68-year-old lady with history of insomni a, HTN, has not been feeling well for several days, with malaise, some productive cough, fever, vomiting, came in to ER for evaluation yesterday, was found to also have worsening insomnia, was found to have mild rhabdomyolysis, leukocytosis, fever, she was given Rocephin, received Zyprexa, discharged with cefdinir. They return to the emergency room today due to her having again a high fever, with continued malaise. Chest x-ray in ER with left lower lung zone infiltrate. UA with 25-40 WBC, 10-15 RBC, 15-25 SCC. Urine dark yellow, cloudy, 2+ bacteria. She is currently sleeping after receiving Haldol and Benadryl in ER, but does wake up to answer some questions. Most history to be obtained from her daughter. Daughter also reports mother having confusion. Penicillin allergy was a rash a long time ago. Hospital Course Hospital Course She was hospitalized and treated with antibiotic with ceftriaxone, azithromycin for community-acquired pneumonia, urinary tract infection. Urine culture was requested, but initially uncollected, it is not clear whether UA from day before was still available. CT abdomen pelvis was obtained, showed no intra- abdominal collections or hydronephrosis or obstructing urinary stones. Left lower lobe infiltrates representing pneumonia. She required transient oxygen support. Today she reported she was feeling better and requested discharge home. Her fever did improve, leukocytosis has resolved. Cultures are still pending. Repeat was obtained prior to discharge although this 1 is after she has already been receiving antibiotics. She was given replacement for potassium and magnesium with hypokalemia 2.7, magnesium 1.8. Please follow-up levels. She still reported having some nausea due to postnasal discharge, but no vomiting, tolerating oral intake; will use saline spray, and provided with some Zofran. Due to mild transaminitis on discharge antibiotic changed to cefdinir and doxycycline, please follow-up liver parameters. Follow-up for resolution of pneumonia, UTI, follow-up final cultures. Continue to optimize hypertension. Additionally due to snoring, frequent nighttime awakenings, daytime tiredness, after she recovers from acute condition please refer for sleep study. Discussed the above concerns with her and her daughter. They know to seek medical attention in case of any worsening or new concerning symptoms. Physical Exam Narrative: Today she is fully alert, appears stronger, sitting at the side of the bed. Const: COMMON NORMALS: patient oriented x3 and alert GENERAL APPEARANCE: cooperative ORIENTATION/CONSCIOUSNESS: Yes awake HENMT: COMMON NORMALS: oropharynx normal Neck/C-Spine: COMMON NORMALS: no JVD Resp: COMMON NORMALS: normal respiratory effort and clear to auscultation bilaterally AUSCULTATION: clear to auscultation bilaterally Cardio: COMMON NORMALS: no JVD, regular rhythm, S1 normal heart sound present, S2 normal heart sound present and No murmurs present (Cardio) RHYTHM: regular rhythm HEART SOUNDS: S1 normal heart sound present and S2 normal heart sound present GI: COMMON NORMALS: Normal to inspection, nondistended, normoactive bowel sounds present, Soft to palpation and non-tender PALPATION: Yes Soft to palpation Extremity: COMMON NORMALS: no joint enlargement and no pedal edema Neuro: COMMON NORMALS: patient oriented x3 and moves all extremities SENSORIUM/ORIENTATION: Yes alert Skin: COMMON NORMALS: no rashes or lesions noted GENERAL SKIN EXAM: no rashes or lesions noted Discharge Data Studies Completed and Pending Completed Studies During Hospitalization Category Date Time Status CT kidney stone [id number] Stat Cat Scan 12/31/23 08:49 Completed XR chest 1V portable [id number] Stat Exams 12/31/23 08:15 Completed Pending at discharge Category Date Time Status Blood Culture Stat Lab 12/31/23 09:00 Results Complete Blood Count w/Auto AM LABS Lab 01/02/24 04:00 Ordered Complete Blood Count w/Auto AM LABS Lab 01/03/24 04:00 Ordered Comprehensive Metabolic Panel AM LABS Lab 01/02/24 04:00 Ordered Comprehensive Metabolic Panel AM LABS Lab 01/03/24 04:00 Ordered Sputum Culture and Gram Stain Routine Lab 12/31/23 11:43 Uncollected UA w/Reflex to Microscope [Urinalysis] Routine Lab 01/01/24 13:52 Uncollected Urine Culture Routine Lab 12/31/23 11:26 Ordered Radiology Impressions Chest X-Ray 12/31/23 08:15 IMPRESSION: Left lower lung zone infiltrates. Abdomen/Pelvis CT 12/31/23 08:49 IMPRESSION: 1. No intra-abdominal collections, hydronephrosis or obstructing urinary stones. 2. Left lower lobe infiltrates, representing pneumonia. COMMENTS: Consistent with the [place]'s Incidental Findings Committee white paper (J Am Lena Radiol 2018): Any incidental renal lesion less than 1 cm or classified as too small to characterize, or any incidental cystic renal lesion characterized as simple-appearing, is likely benign. No follow-up imaging is recommended for these lesions per consensus recommendations based on imaging criteria. Laboratory Results WBC 7.75 10^3/uL (3.29-11.43) 01/01/24 09:00 RBC 4.72 10^6/uL (3.85-5.65) 01/01/24 09:00 Hgb 13.50 g/dL (11.27-16.99) 01/01/24 09:00 Hct 41.0 % (36-47) 01/01/24 09:00 MCV 86.9 fl (85-98) 01/01/24 09:00 MCH 28.6 pg (27-33) 01/01/24 09:00 MCHC 32.9 g/dL (30-55) 01/01/24 09:00 RDW 12.8 % (12.1-15.1) 01/01/24 09:00 Plt Count 190 10^3/cmm (157-399) 01/01/24 09:00 MPV 9.1 fL (7.4-10.4) 01/01/24 09:00 Neut % (Auto) 82.8 % 01/01/24 09:00 Lymph % (Auto) 8.1 % 01/01/24 09:00 [place] % (Auto) 7.9 % 01/01/24 09:00 Eos % (Auto) 0.0 % 01/01/24 09:00 Baso % (Auto) 0.4 % 01/01/24 09:00 Neut # (Auto) 6.42 10^3/uL (1.8-7.7) 01/01/24 09:00 Lymph # (Auto) 0.6 10^3/uL (0.8-4.8) L 01/01/24 09:00 [place] # (Auto) 0.6 10^3/uL (0.2-0.9) 01/01/24 09:00 Eos # (Auto) 0.0 10^3/uL (0.0-0.8) 01/01/24 09:00 Baso # (Auto) 0.0 10^3/uL (0.0-0.1) 01/01/24 09:00 Nucleated RBC % (auto) 0 % 01/01/24 09:00 Nucleated RBCs # 0.0 /100WBC 01/01/24 09:00 Sodium 135 mmol/L (136-145) L 01/01/24 09:00 Potassium 2.7 mmol/L (3.5-5.1) L* 01/01/24 09:00 Chloride 99 mmol/L (98-107) 01/01/24 09:00 Carbon Dioxide 26 mmol/L (22-29) 01/01/24 09:00 Anion Gap 12.7 (5-19) 01/01/24 09:00 BUN 10 mg/dL (8-23) 01/01/24 09:00 Creatinine 0.6 mg/dL (0.5-0.9) 01/01/24 09:00 GFR Calculation 100.0 mL/min (90-130) 01/01/24 09:00 Glucose 145 mg/dL (65-115) H 01/01/24 09:00 Estimat Average Glucose 114 12/31/23 07:42 Hemoglobin A1c 5.6 % (4.0-6.0) 12/31/23 07:42 Calculated Osmolality 282 mOsm/kg (285-295) L 01/01/24 09:00 Lactic Acid 0.8 mmol/L (0.5-2.2) 12/31/23 07:42 Calcium 7.7 mg/dL (8.5-10.5) L 01/01/24 09:00 Magnesium 1.8 mg/dL (1.7-2.3) 01/01/24 09:00 Total Bilirubin 0.2 mg/dL (0.15-1.2) 01/01/24 09:00 AST 67 U/L (0-32) H 01/01/24 09:00 ALT 54 U/L (0-33) H 01/01/24 09:00 Alkaline Phosphatase 69 U/L (35-105) 01/01/24 09:00 Creatine Kinase 700 U/L (26-192) H* 12/31/23 07:42 Total Protein 5.9 g/dL (6.6-8.7) L 01/01/24 09:00 Albumin 2.8 g/dL (3.5-5.2) L 01/01/24 09:00 Globulin 3.1 g/dL (1.3-4.6) 01/01/24 09:00 Adenovirus (PCR) Not detected (NOT DETECT) 12/31/23 08:27 C. pneumoniae DNA (PCR) Not detected (NOT DETECT) 12/31/23 08:27 Coronavirus 229E (PCR) Not detected (NOT DETECT) 12/31/23 08:27 Human Metapneumovir PCR Not detected (NOT DETECT) 12/31/23 08:27 Influenza A (H1) PCR Not detected (NOT DETECT) 12/31/23 08:27 Influ A (H1/09) PCR Not detected (NOT DETECT) 12/31/23 08:27 Influenza A (H3) PCR Not detected (NOT DETECT) 12/31/23 08:27 Influenza Type A (PCR) Not detected (NOT DETECT) 12/31/23 08:27 Influenza Type B (PCR) Not detected (NOT DETECT) 12/31/23 08:27 M. pneumoniae (PCR) Not detected (NOT DETECT) 12/31/23 08:27 Parainfluenza 1 (PCR) Not detected (NOT DETECT) 12/31/23 08:27 Parainfluenza 2 (PCR) Not detected (NOT DETECT) 12/31/23 08:27 Parainfluenza 3 (PCR) Not detected (NOT DETECT) 12/31/23 08:27 Parainfluenza 4 (PCR) Not detected (NOT DETECT) 12/31/23 08:27 RSV Type A (PCR) Not detected (NOT DETECT) 12/31/23 08:27 RSV Type B (PCR) Not detected (NOT DETECT) 12/31/23 08:27 Entero/Rhino (PCR) Not detected (NOT DETECT) 12/31/23 08:27 SARS-CoV-2 (PCR) Not detected (NOT DETECT) 12/31/23 08:27 Vitals Last Vital Signs Temp 99.3 F 01/01/24 12:00 Pulse 82 01/01/24 12:00 Resp 18 01/01/24 12:00 BP 158/82 01/01/24 12:00 Pulse Ox 91 01/01/24 12:00 O2 Del Method Room Air 01/01/24 07:31 O2 Flow Rate 2 12/31/23 09:45 Discharge Plan Discharge Patient Disposition: Home Condition: Stable Prescriptions: New doxycycline hyclate 100 mg tablet 100 mg PO BID 7 Days Qty: 14 0RF magnesium L-threonate 48 mg magnesium (667 mg) capsule 48 mg PO DAILY Qty: 90 0RF ondansetron 4 mg tablet,disintegrating 4 mg PO Q8H PRN (Reason: nausea and vomiting) 5 Days Qty: 15 1RF Continued diltiazem HCl [Cartia XT] 120 mg capsule,extended release 24hr 120 mg PO DAILY cefdinir 300 mg capsule 300 mg PO BID 7 Days Qty: 14 0RF potassium chloride 10 mEq tablet extended release 10 meq PO TID Qty: 90 0RF Held chlorthalidone 25 mg tablet 25 mg PO DAILY Hold Instructions: Resume on 01/08/24. Discharge Orders: Discharge Order (Routine); Ordered 01/01/24 Ordered By: Zander Aguillon Referrals: Bonnie Méndez NP [Primary Care Provider] - 4-7 days Patient Instructions: Doxycycline (By mouth), Ondansetron (By mouth), Magnesium (By mouth), Urinary Tract Infection in Women (DC), Opioid Safety, Pain Management Activity Restrictions/Additional Instructions: Please follow-up with your primary doctor for reassessment of recovery from pneumonia as well as urinary tract infection. Please have your primary doctor follow-up final results of urine and blood culture. Complete antibiotic course with ceftriaxone and doxycycline. Azithromycin is not continued due to noted small increase in liver numbers AST and ALT. Please have your primary doctor follow-up your liver parameters. Please continue potassium and magnesium supplementation. Have your primary doctor recheck your potassium and magnesium levels. After you recover from acute condition please work with your primary doctor toward the referral for sleep study due to snoring, waking up at night. Continue follow-up with your primary provider regarding hypertension. Discharge Attestations Time Spent in Discharge Care*: greater than 30 min Quality Metrics Clinical Quality Measures [ No reported AMI, CVA or VTE this stay] Coding Level of Care Code 89409 Total time (in minutes) for Discharge: 40 Diagnoses Pneumonia J18.9 Complicated UTI (urinary tract infection) N39.0 Acute encephalopathy G93.40 Rhabdomyolysis M62.82 Hypokalemia E87.6 Hypertension I10 Hyperglycemia R73.9
--- NOTE | 2024-01-01 14:36 | PC.NURSE ---
notified Dr. Aguillon patient refused lovenox injection. No new orders at this time.
[2024-01-01 15:19] VITALS: BP 158/82; PULSE 82; RESP 18; TEMP 37.4; O2SAT 91
--- NOTE | 2024-01-01 15:34 | PC.NURSE ---
Discussed discharge with patient and patient's daughter. Went over follow up appointment, new medications, continued medications and held medications. Patient's daughter verbalized understanding.
== END 2024-01-01 15:25 | disposition home or self-care (01) ==
LOC: ER 07:58 → MEDSURG 09:28
PROVIDERS: Admitting Provider Internal Medicine; Emergency Provider Family Medicine; PCP Nurse Practitioner Family; Visit Provider Internal Medicine
DX: J18.9 Pneumonia, unspecified organism (principal); N39.0 Urinary tract infection, site not specified; G93.40 Encephalopathy, unspecified; M62.82 Rhabdomyolysis; E87.6 Hypokalemia; I10 Essential (primary) hypertension; R73.9 Hyperglycemia, unspecified; G47.00 Insomnia, unspecified
CPT/HCPCS: 36415; 71045; 74176; 80053; 82550; 83036; 83605; 83735; 85025; 87040; 87086; 87486; 87581; 87633; 93005; 96365; 96366; 96367; 96375; 96376; 99285; G0378; J0456; J0696; J1200; J1630; J1885; J2405; J3475; J7030; J7050

== ENCOUNTER → 2024-01-18 11:04 | Outpatient (BNVA) | payer MEDICARE, MEDICAID, SELFPAY | PROVIDERS: PCP Nurse Practitioner Family; Referring Provider Family Medicine; Visit Provider Nurse Practitioner | DX: S43.004A Unspecified dislocation of right shoulder joint, initial encounter; W19.XXXA Unspecified fall, initial encounter; M19.011 Primary osteoarthritis, right shoulder | CPT/HCPCS: 73030 ==

== ENCOUNTER 2024-01-18 13:57 | Outpatient (CLI) | payer MEDICARE, MEDICAID, SELFPAY | END 2024-01-18 13:58 | disposition home or self-care (01) | LOC: SPT 13:57 | PROVIDERS: PCP Nurse Practitioner Family; Visit Provider Nurse Practitioner | DX: Z46.89 Encounter for fitting and adjustment of other specified devices (principal); M25.511 Pain in right shoulder | CPT/HCPCS: 97760; L3670 ==

== ENCOUNTER → 2024-02-01 10:45 | Outpatient (BNVA) | payer MEDICARE, MEDICAID, SELFPAY | PROVIDERS: PCP Nurse Practitioner Family; Visit Provider Nurse Practitioner | DX: S43.004A Unspecified dislocation of right shoulder joint, initial encounter (principal); X58.XXXA Exposure to other specified factors, initial encounter; M19.011 Primary osteoarthritis, right shoulder | CPT/HCPCS: 99024 ==

== ENCOUNTER → 2024-02-22 13:29 | Outpatient (BNVA) | payer MEDICARE, MEDICAID, SELFPAY | PROVIDERS: PCP Nurse Practitioner Family; Visit Provider Nurse Practitioner | DX: M19.011 Primary osteoarthritis, right shoulder (principal) | CPT/HCPCS: 20610; J1100; J2795; J3301 ==

== ENCOUNTER → 2024-04-04 13:48 | Outpatient (BNVA) | payer MEDICARE, MEDICAID, SELFPAY | PROVIDERS: PCP Nurse Practitioner Family; Visit Provider Nurse Practitioner | DX: S43.004A Unspecified dislocation of right shoulder joint, initial encounter (principal); M19.011 Primary osteoarthritis, right shoulder; X58.XXXA Exposure to other specified factors, initial encounter | CPT/HCPCS: 99213 ==

== ENCOUNTER → 2024-05-14 13:37 | Outpatient (BNVA) | payer MEDICARE, MEDICAID, SELFPAY | PROVIDERS: PCP Nurse Practitioner Family; Visit Provider Nurse Practitioner | DX: M19.011 Primary osteoarthritis, right shoulder (principal); S43.004A Unspecified dislocation of right shoulder joint, initial encounter; X58.XXXA Exposure to other specified factors, initial encounter | CPT/HCPCS: 20610; J1100; J2795; J3301 ==

== ENCOUNTER → 2024-08-15 13:32 | Outpatient (BNVA) | payer MEDICARE, MEDICAID, SELFPAY | PROVIDERS: PCP Nurse Practitioner Family; Visit Provider Nurse Practitioner | DX: M19.011 Primary osteoarthritis, right shoulder (principal); S43.004D Unspecified dislocation of right shoulder joint, subsequent encounter; X58.XXXD Exposure to other specified factors, subsequent encounter | CPT/HCPCS: 20610; 99213; J1100; J2795; J3301 ==

== ENCOUNTER → 2024-08-22 13:11 | Outpatient (BNVA) | payer MEDICARE, MEDICAID, SELFPAY | PROVIDERS: PCP Nurse Practitioner Family; Visit Provider Nurse Practitioner | DX: M19.011 Primary osteoarthritis, right shoulder (principal); M19.012 Primary osteoarthritis, left shoulder; M75.102 Unspecified rotator cuff tear or rupture of left shoulder, not specified as traumatic | CPT/HCPCS: 20610; 73030; 99214; J1100; J2795; J3301; J9999 ==

== ENCOUNTER → 2024-11-26 10:55 | Outpatient (BNVA) | payer MEDICARE, MEDICAID, SELFPAY | PROVIDERS: PCP Nurse Practitioner Family; Visit Provider Nurse Practitioner | DX: M19.011 Primary osteoarthritis, right shoulder (principal); M19.012 Primary osteoarthritis, left shoulder; M75.102 Unspecified rotator cuff tear or rupture of left shoulder, not specified as traumatic | CPT/HCPCS: 20610; J1100; J2795; J3301; J9999 ==

== ENCOUNTER → 2024-12-12 13:58 | Outpatient (BNVA) | payer MEDICARE, MEDICAID, SELFPAY | PROVIDERS: PCP Nurse Practitioner Family; Visit Provider Podiatrist Foot & Ankle Surgery | DX: L84 Corns and callosities (principal); M20.11 Hallux valgus (acquired), right foot | CPT/HCPCS: 99203 ==

== ENCOUNTER → 2025-02-25 11:00 | Outpatient (BNVA) | payer MEDICARE, MEDICAID, SELFPAY | PROVIDERS: PCP Nurse Practitioner Family; Visit Provider Nurse Practitioner | DX: M19.012 Primary osteoarthritis, left shoulder (principal); M19.011 Primary osteoarthritis, right shoulder; M75.102 Unspecified rotator cuff tear or rupture of left shoulder, not specified as traumatic | CPT/HCPCS: 20610; J1100; J2795; J3301; J9999 ==

== ENCOUNTER → 2025-04-29 10:31 | Outpatient (BNVA) | payer MEDICARE, MEDICAID, SELFPAY | PROVIDERS: PCP Nurse Practitioner Family; Visit Provider Nurse Practitioner | DX: M19.011 Primary osteoarthritis, right shoulder (principal); M19.012 Primary osteoarthritis, left shoulder | CPT/HCPCS: 20610; J1100; J2795; J3301; J9999 ==